=== PATIENT | male | born 1950 | race Caucasian/White ===

== ENCOUNTER → 2017-05-28 13:53 | Outpatient (CLI) | payer MEDICARE, OTHER, SELFPAY ==
[2017-05-28 16:50] LABS: Anion Gap 7 (5-15); BUN 19 mg/dL (7-18); BUN/Creat Ratio 21.9 RATIO (10-20); Calcium,Total 9.1 mg/dL (8.5-10.1); Chloride 104 mmol/L (98-107); Creatinine, Serum 0.87 mg/dL (0.70-1.30); EST Glomerular Filtration Rate 94 mL/min (>60); Est Glom Filt Rate - Afr Amer 113 mL/min (>60); Glucose 80 mg/dL (74-106); Potassium 4.5 mmol/L (3.5-5.1); Sodium Level 139 mmol/L (136-145)
== END ==
PROVIDERS: Family Provider Family Medicine; PCP Family Medicine; Visit Provider Family Medicine
DX: I10 Essential (primary) hypertension (principal)
CPT/HCPCS: 36415; 80048

== ENCOUNTER 2017-07-06 07:41 | Day surgery (SDC) | payer MEDICARE, OTHER, SELFPAY ==
[2017-07-06] VITALS (11 sets, daily range): BP systolic 74–123; BP diastolic 49–86; PULSE 51–76; RESP 16; TEMP 36.1–36.7; O2SAT 95–100; BMI 24.5
--- NOTE | 2017-07-06 | IMM_PTH ---
PATIENT: MICHAEL JOHNSON LOC: EN U#:[id number] AGE/SX: 66/M ROOM: RE07/06/[address]: Dr. Dong Bowen MD : 1950 BED: DIS: 07/06/2017 SPEC #: [id number] RECD: 07/09/17 12:31 STATUS: ROSEMARIE BAHMAN #: [id number] LUIS ANTONIO: 07/06/17 00:[address]: Dong Bowen DEPT: IMMUNOHISTOCHEMISTRY RECD BY: Pearl Tristan ENTERED: 07/09/17 12:32 SP TYPE: IMMUNO OTHR DR: Dr. Rolf Saldivar MD Tissues: C - Stomach, NOS Procedures: H Pylori (initial) PHYSICIAN & INSTITUTION [place] [address] SPECIMEN INFORMATION: Tissue Source: C ? Antral biopsy Clinical Info: Epigastric abdominal pain Specimen Number: [id number] CPT code: 18573 METHODOLOGY: Deparaffinized sections of prefer/formalin-fixed tissue or PAP/DQ stained slides are incubated with monoclonal/polyclonal antibodies/oligonucleotide probes. Localization is made via biotin free immunoperoxidase method. Appropriate controls are performed and reacted as expected. Results on target cell population are indicated in the following table: RESULTS: ANTIBODY / CLONE RESULT Block C H Pylori (polyclonal) negative These tests were developed and their performance characteristics determined by [facility]. They may not have been cleared or approved by the U.S. Food and Drug Administration. The FDA has determined that such clearance or approval is not necessary. INTERPRETATION: C. Antral biopsy: Negative for Helicobacter pylori organisms. SJ:tosin 07/10/17
--- NOTE | 2017-07-06 09:05 | COLBX_PTH ---
PATIENT: MICHAEL JOHNSON LOC: EN U#:[id number] AGE/SX: 66/M ROOM: RE07/06/[address]: Dr. Dong Bowen MD : 1950 BED: DIS: 07/06/2017 SPEC #: [id number] RECD: 07/06/17 13:16 STATUS: ROSEMARIE BAHMAN #: [id number] LUIS ANTONIO: 07/06/17 09:[address]: Dong Bowen DEPT: SURGICAL PATHOLOGY RECD BY: Garth Lu ENTERED: 07/06/17 14:10 SP TYPE: COLON BX OTHR DR: Dr. Rolf Saldivar MD Tissues: A - Colon, NOS B - Duodenum, NOS C - Gastric mucous membrane D - Gastric mucous membrane Procedures: Special Stain Group II Surgery Specimen Level IV Alcian Blue/PAS (control) HEADER OPERATION: Colonoscopy with biopsy and EGD with biopsy PRE-OP DIAGNOSIS: Epigastric abdominal pain TISSUE SUBMITTED: A. Random colon biopsies, B. Duodenal biopsy, C. Antral biopsy for H. Pylori and path, D. GE junction biopsy MICROSCOPIC DIAGNOSIS A. Colon, random biopsy: Fragments of colonic mucosa, no pathologic diagnosis. B. Duodenum, biopsy: Fragment of duodenal mucosa with focal mild flattening of villi. See comment. C. Antral biopsy: Mild gastritis. D. 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 Negative for dysplasia. Focal mild chronic inflammation. See comment. SJ:tosin 07/09/17 COMMENT B. Increased number of intraepithelial lymphocytes consistent with celiac disease are not seen. C. The results of immunohistochemistry for Helicobacter pylori will be reported separately ([id number]). D. Alcian blue/PAS stain with matched control is used in the evaluation of the specimen. MICROSCOPIC DESCRIPTION Slides are reviewed. C. The specimen shows fragments of gastric mucosa with chronic inflammatory cell infiltrates in the lamina propria consisting of lymphocytes and plasma cells, consistent with mild chronic gastritis. GROSS DESCRIPTION A - Received in fixative is one container labeled with the patient's name and designated random colon biopsies. The specimen consists of multiple irregular fragments of light lopez soft tissue that in aggregate measure 1.5 x 0.5 x 0.1 cm. The specimen is totally submitted in one cassette. B - Received in fixative is one container labeled with the patient's name and designated duodenal biopsy. The specimen consists of one irregular fragment of light lopez soft tissue that measures 0.3 x 0.2 x 0.1 cm. The specimen is totally submitted in one cassette. C - Received in fixative is one container labeled with the patient's name and designated antral biopsy for H. pylori and path. The specimen consists of two irregular fragments of light lopez soft tissue that in aggregate measure 0.3 x 0.3 x 0.1 cm. The specimen is totally submitted in one cassette. D - Received in fixative is one container labeled with the patient's name and designated GE junction. The specimen consists of multiple irregular fragments of light lopez soft tissue that in aggregate measure 1.5 x 0.5 x 0.1 cm. The specimen is totally submitted in one cassette. / DERRICK:tosin 07/06/17 TC:3 CPT: 63408 x4, 80077
--- NOTE | 2017-07-06 09:52 | PCM.OPRPT ---
Problem List (1) Change in bowel habit Status: Acute Report of Operation Date of Procedure: 07/06/17 Pre-Operative Diagnosis: Epigastric fullness. Change of bowel habits. Family history with a father who had esophageal obstruction of unknown etiology. Post-Operative Diagnosis: Moderate hiatal hernia. Distal esophagitis suspicious for James's. Minimal duodenitis. Tortuous colon. Minimal diverticulosis. unremarkable mucosa. Fair bowel prep Surgery/Procedure Performed:: Esophagogastroduodenoscopy with duodenal and antral and distal esophageal biopsies. Colonoscopy with random colonic biopsies Description of Surgical Findings:: Timeout and informed consent was obtained. 66-year-old gentleman was taken to the endoscopy suite. His oropharynx anesthetized with Topex. He was placed in the left lateral decubitus position. Throughout both the upper and lower endoscopy he received a total of 125 mg of Demerol and 5 mg of Versed is intravenous sedation. Under direct physician G of gastroscope was inserted into the esophageal inlet. The proximal mid esophagus did not appear to be remarkable. EG junction was at 45 cm. Moderate hiatal hernia noted. Reflux esophagitis noted with changes suspicious for James's. Short segment less than a centimeter. Scope was advanced in the stomach. Stomach did not appear to be remarkable. The scope was advanced through the pylorus. There appeared to be minimal erythema of the duodenum. Scope was advanced in the second portions of the duodenum which was not remarkable. There was free bile reflux from the duodenum onto the stomach. The scope was with about drawn back into the stomach and a duodenal biopsy was obtained. The scope was withdrawn back into the stomach antral biopsy was obtained. The scope was retroflexed. The hiatal hernia noted. The cardia noted. There is no active bleeding or ulcerations. The scope was placed back in antegrade viewing position. Excess fluid and air was aspirated free. The scope was withdrawn to the distal esophagus were multiple distal esophageal biopsies were obtained. Hemostasis was intact. He tolerated procedure well. The scope was removed without additional abnormality Subsequently the patient was kept in the left lateral decubitus position. Digital rectal exam performed. Mild hemorrhoidal changes 2. 2+ smooth prostate. No mass lesions. Self-A-r-T colonoscope inserted the rectum advanced through a tortuous sigmoid colon with an acutely angled splenic flexure. By placing the patient supine and with gentle effort the scope was carefully and gradually advanced through the splenic curvature. Then the scope was readily advanced to the transverse colon into the ascending colon. The cecum ileocecal valve area was nicely achieved. Bowel prep was only fair with liquid stool located throughout the colon coating much of the mucosal surfaces. I felt that I got an above average inspection of the colon though not absolutely perfect secondary to the bowel prep. The scope was carefully withdrawn from the cecum ascending colon transverse colon descending colon. Random colonic biopsies were obtained. There were no mass lesions identified. Minimal sigmoid diverticulosis. The scope was retroflexed within the rectum. Hemorrhoidal changes noted. Excess fluid and air was aspirated free the procedure was completed the patient tolerated it well. Impression Moderate hiatal hernia with reflux esophagitis and findings suspicious for James's. Pathology pending. Would consider follow-up esophagogastroduodenoscopy in 3 years pending path. Otherwise normal-appearing stomach. mild duodenitis with pathology pending. Fair bowel prep. Tortuous sigmoid colon. Minimal sigmoid diverticulosis. Mild internal hemorrhoids. No findings to correlate with acute pathology or explanation for the patient's change of bowel habit. Random colonic biopsies pending. Previous colonoscopy in 2004. Next screening colonoscopy recommended in 10 years. If the patient's symptoms persist then would consider a abdominal pelvic CT scan. Upper endoscopy medications were given at 0920. The procedure was started at 0923. The procedure was completed at 0930. The colonoscopy was started at 0934. The cecum was reached at 0943.43. The procedure was completed 0949.25. Cc: Dr. Yariel Bowen M.D., F.A.C.S. Type of Anesthesia:: IV Sedation
== END 2017-07-06 11:49 | disposition home or self-care (01) ==
LOC: EN 07:42 → AC 07:44
PROVIDERS: Family Provider Family Medicine; PCP Family Medicine; Visit Provider Surgery
PROC: 0DJD8ZZ Inspection of Lower Intestinal Tract, Via Natural or Artificial Opening Endoscopic (ICD-10-PCS; CPT 45378; principal; 2017-07-06 08:55)
DX: K29.70 Gastritis, unspecified, without bleeding (principal); K44.9 Diaphragmatic hernia without obstruction or gangrene; K29.80 Duodenitis without bleeding; K57.30 Diverticulosis of large intestine without perforation or abscess without bleeding; K64.8 Other hemorrhoids; K21.0 Gastro-esophageal reflux disease with esophagitis; I10 Essential (primary) hypertension; M19.90 Unspecified osteoarthritis, unspecified site; Z79.82 Long term (current) use of aspirin; Z79.899 Other long term (current) drug therapy
CPT/HCPCS: 43239; 45380; 88305; 88313; 88342; J7120

== ENCOUNTER → 2017-10-26 07:21 | Outpatient (CLI) | payer MEDICARE, OTHER, SELFPAY ==
--- NOTE | 2017-10-26 07:22 | CT_ITS ---
STUDY: CT ABDOMEN WITH CONTRAST REASON FOR EXAM: Male, 66 years old. Right-sided abdominal pain. RADIATION DOSAGE (If Supplied By Facility): CTDIvol = ( 14.73 ) mGy, DLP = ( 632.54 ) mGycm TECHNIQUE: Transaxial images were obtained post I.V. administration of 100mL ml of Isovue 300 contrast, and with oral contrast. Sagittal and coronal images were reconstructed. Individualized dose optimization techniques were used for this CT. COMPARISON: None. FINDINGS: Minimal linear atelectasis and/or scarring at the lung bases. The visualized portions of the heart are within normal limits. Normal liver. Normal gallbladder and extrahepatic biliary system. Normal spleen. Normal pancreas. Normal bilateral adrenal glands. Normal right kidney. Normal left kidney. There is an accessory left retroaortic renal vein. Normal visualized stomach. Normal small intestine. There are multiple colonic diverticula consistent with diverticulosis. There is thickening of the rectal wall. Clinical correlation is recommended. The patient is status post appendectomy. Normal abdominal aorta. Normal inferior vena cava. Normal retroperitoneum. There is diffuse bladder wall thickening. Cystitis should BE ruled out. Increased markings are also seen in the periprostatic fat. Central prostatic calcification. Normal abdominal wall. Normal osseous structures. CT/Abdomen/Pelvis WITH Contrast IMPRESSION: Diffuse bladder wall thickening. Sigmoid diverticula. Findings in keeping with the rectal wall thickening. Clinical correlation is recommended. Electronically Signed: Michele De Leon MD at 9:57 EDT Tel [phone], Service support ,
[2017-10-26 07:41] LABS: CREATININE FINGERSTICK 0.8 mg/dL (0.70-1.30); EGFR FINGERSTICK > 60.0000 mL/min (>60)
== END ==
PROVIDERS: Family Provider Family Medicine; PCP Family Medicine; Visit Provider Surgery
DX: R10.9 Unspecified abdominal pain (principal)
CPT/HCPCS: 74177; Q9967

== ENCOUNTER → 2018-01-09 16:08 | Outpatient (CLI) | payer MEDICARE, OTHER, SELFPAY ==
[2018-01-09 18:21] LABS: Anion Gap 7 (5-15); BUN 19 mg/dL (7-18); BUN/Creat Ratio 19.8 RATIO (10-20); Chloride 104 mmol/L (98-107); Cholesterol 188 mg/dL (200); Creatinine, Serum 0.96 mg/dL (0.70-1.30); EST Glomerular Filtration Rate 83 mL/min (>60); Est Glom Filt Rate - Afr Amer 101 mL/min (>60); Glucose 96 mg/dL (74-106); High Density Lipoprotein 54 mg/dL; PSA,Total - Annual Screen 0.86 ng/mL (0.00-4.00); Sodium Level 139 mmol/L (136-145); Triglycerides 111 mg/dL; Very Low Density Lipoprotein 22 mg/dL (5-40)
== END ==
PROVIDERS: Family Provider Family Medicine; PCP Family Medicine; Visit Provider Family Medicine
DX: I10 Essential (primary) hypertension (principal); Z12.5 Encounter for screening for malignant neoplasm of prostate; R35.0 Frequency of micturition
CPT/HCPCS: 36415; 80048; 80061; 84153; G0103

== ENCOUNTER → 2018-07-10 15:59 | Outpatient (CLI) | payer MEDICARE, OTHER, SELFPAY ==
--- NOTE | 2018-07-10 16:14 | RAD_ITS ---
STUDY: X-RAY - CERVICAL SPINE REASON FOR EXAM: Male, 67 years old. Neck pain for sometime now getting worse. A lot of stiffness in a lot of pain when looking to the left, to the right and upward. TECHNIQUE: 6 view(s) of the cervical spine were obtained. COMPARISON: None FINDINGS: Normal anterior atlantoaxial articulation. Normal odontoid process. Normal cervical lordosis. Normal vertebral bodies and endplates. Normal disc space heights. Moderately pronounced stenosis of the left C4-C5 intervertebral neural foramen due to osteophytic encroachment arising from the moderately pronounced left C4-C5 degenerative facet arthropathy. No other suspicious foraminal stenosis. The soft tissue structures are unremarkable. RAD/Cerv Spine 4 or 5 Views IMPRESSION: 1. Moderately pronounced stenosis of the left C4-C5 intervertebral neural foramen due to osteophytes arising from the left C4-C5 degenerative facet arthropathy. 2. No acute osseous abnormality of the cervical spine. Electronically Signed: Dinh Briseno MD at 12:57 EDT , Service support ,
[2018-07-10 17:45] LABS: Anion Gap 7 (5-15); BUN 21 mg/dL (7-18); BUN/Creat Ratio 24.3 RATIO (10-20); Calcium,Total 8.9 mg/dL (8.5-10.1); Chloride 104 mmol/L (98-107); Creatinine, Serum 0.86 mg/dL (0.70-1.30); EST Glomerular Filtration Rate 94 mL/min (>60); Est Glom Filt Rate - Afr Amer 114 mL/min (>60); Glucose 100 mg/dL (74-106); PSA,Total- Diagnostic 0.91 ng/mL (0.0-4.0); Sodium Level 137 mmol/L (136-145)
== END ==
PROVIDERS: Family Provider Family Medicine; PCP Family Medicine; Referring Provider Family Medicine; Visit Provider Family Medicine
DX: I10 Essential (primary) hypertension (principal); R35.0 Frequency of micturition; R39.11 Hesitancy of micturition; M54.2 Cervicalgia
CPT/HCPCS: 36415; 72050; 80048; 84153

== ENCOUNTER 2018-09-25 16:00 | Outpatient (RCR) | payer MEDICARE, OTHER, SELFPAY ==
--- NOTE | 2018-08-23 14:28 | HP.PTEVAL_ITS ---
Patient's Visit Information MICHAEL JOHNSON is a 67 year old M referred to Physical Therapy by Rolf Saldivar MD with a diagnosis of neck pain. Date of Evaluation: 08/23/18 Physical Therapist: Joey Prieto, REGGIET, OCS, CSCS - Visit Plan Frequency: 2x /Week Duration: 4-6 Weeks Plan: 2x/week x 4 weeks as needed after 2 week trip to [place]... He is working on posture, c/s ext and scap mobility while he is gone,. Will progress to c/s ROM, UE ROM adn ensure appropriate repeated motion(ext) upon return based on c/s ROM and pain level. Pec stretch. Then progress to postural adn cervical strength as tolerated. - Subjective Findings: Neck pain with looking L and limited motion. Been there a while 4 years adn gettign worse. x ray degenerative. Gave muscle reaxer for a month but it did not help. No exercise for neck. Comfortable at rest adn looking straight ahead for the most art. Feels discomfort in middle and to the left is stiff adn sore more centrally. R turning is not bad. No activitiy limitation except has to turn body to the left in car. Basic ADLs are OK. 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 Feels better if moves it, wore when not doing much. Getting up in morning is very stiff. Using thicker pillow helps especially on side. Sleeps on R side. Smetimes uncomfy trying to get to sleep. - Pain Central neck. Pain Intensity (Out of 10): 0 Pain Intensity Range: 0, 4 Comment: hlding head up is worse, looking up worse. - Objective Baseline discomfort 3/10 centrally. Repeated flexion: Produces central pain. repeated ret:increased ROM, NE pain. Repeated ext: improved ROM each time adn overall, NE pain. Scap mobiity is poor. Forward head elevated scapula posture. Stiffness in UE elevation but full aROM UE. Neck ROM limited to 25 R rotation with pain, 33 L rotation discomfort, SB max limitations, ext 30 degrees adn painful, flexion hurts and 40 degrees. reflexes 2/3 bi and triceps. sensation UE WNL to atif s light touch. Strength UE 4/5 without myotomal abnormalities. - compression test c/s. - nerve tests UE. - Goals Goal 1:: 45 degrees B c/s rotation adn 55 ext adn good scap mobility Goal Time Frame: 4-6 Weeks Goal 2:: Pain in neck abolished at rest adn 1/10 at worst with L rotation Goal Time Frame: 4-6 Weeks Goal 3:: Pt feel 75% better overalla dn I in management of HEP Goal Time Frame: 4-6 Weeks Goal 4:: Sleep without pain Goal Time Frame: 4-6 Weeks - Rehabilitation Potential Physical Therapy Diagnosis: neck pain stenosis vs stiffness. Rehabilitation Potential: Fair - Anticipated Interventions Patient/Client Instruction: Educate patient on: Condition, Plan of Care For the Purpose of:: To decrease pain, To increase ROM, To improve muscle performance and motor function Therapeutic Exercise to Include: Strength training, Postural training, Passive ROM, Active ROM For the Purpose of:: To decrease pain, To increase ROM, To improve muscle performance and motor function, To increase tolerance to activity/condition/position, To improve ability of physical actions for home/community/work/leisure Manual Therapy Techniques to Include: Mobilization, Soft tissue mobilization For the Purpose of:: To increase ROM Thank you for the opportunity to evaluate your patient. For Medicare and Medicare HMO plans, please review the plan of care and approve it. It will need to be FAXED BACK to us at [phone] for Medicare purposes. For Medicare only, by signing this I certify the plan of care. Please let me know if there are questions or concerns regarding this plan of care. Physician Signature: Date:
--- NOTE | 2018-09-25 16:35 | HP.PTREVAL_ITS ---
Rolf Saldivar MD, It has been my pleasure to treat MICHAEL JOHNSON over the last 3 visits for neck pain. Please see the progress note below for an update on the physical therapy plan of care! Subjective: Tried exercises and has questions. Some days feeling better than others. No days worse. Objective/Function: 37 R and 34 L rotation today, 50 extension before stretching. 47 R and 49 L after towel stretch. Plan Plan: f/u 4 weeks to recheck posture, cervical ROM, strength and D/C or progress. Goals Goal 1:: 45 degrees B c/s rotation adn 55 ext adn good scap mobility Goal Time Frame: 4-6 Weeks Goal 2:: Pain in neck abolished at rest adn 1/10 at worst with L rotation Goal Time Frame: 4-6 Weeks Goal 3:: Pt feel 75% better overalla dn I in management of HEP Goal Time Frame: 4-6 Weeks Goal 4:: Sleep without pain Goal Time Frame: 4-6 Weeks Anticipated Interventions Patient/Client Instruction: Educate patient on: Condition, Plan of Care For the Purpose of:: To decrease pain, To increase ROM, To improve muscle performance and motor function Therapeutic Exercise to Include: Strength training, Postural training, Passive ROM, Active ROM For the Purpose of:: To decrease pain, To increase ROM, To improve muscle performance and motor function, To increase tolerance to activity/condition/position, To improve ability of physical actions for h ome/community/work/leisure Manual Therapy Techniques to Include: Mobilization, Soft tissue mobilization For the Purpose of:: To increase ROM Please do not hesitate to contact me at [phone] by phone or if you have questions or concerns regarding this new plan of care! Sincerely, Joey Prieto, DPT, OCS, CSCS
--- NOTE | 2018-12-02 15:25 | HP.PT.NRP ---
HP - Discharge Summary (1) - Patient Information MICHAEL JOHNSON was seen in my office for initial evaluation on 08/23/18. The following Plan of Care was established for this patient: Initial Frequency: 2x /Week Initial Duration: 4-6 Weeks - Anticipated Interventions Patient/Client Instruction: Educate patient on: Condition, Plan of Care For the Purpose of:: To decrease pain, To increase ROM, To improve muscle performance and motor function Therapeutic Exercise to Include: Strength training, Postural training, Passive ROM, Active ROM For the Purpose of:: To decrease pain, To increase ROM, To improve muscle performance and motor function, To increase tolerance to activity/condition/position, To improve ability of physical actions for home/community/work/leisure Manual Therapy Techniques to Include: Mobilization, Soft tissue mobilization For the Purpose of:: To increase ROM This patient was last seen in our office 09/25/18. Pertinent comments regarding their Physical therapy will appear below: Pt seen 3 visits of HEP instruct and was to f/u in Mid October to ensure progress. He did not schedule nor attend that visit. at this point, it has been 8 weeks adn I will disocntinue due to nonattendance. At this point I will be discontinuing this patient from physical therapy. I would be happy to see this patient again in the future if found appropriate by the physician. Thank you! Joey Prieto, DPT, OCS, CSCS
== END 2018-09-25 19:00 | disposition home or self-care (01) ==
LOC: PT 16:00
PROVIDERS: Family Provider Family Medicine; PCP Family Medicine; Referring Provider Family Medicine; Visit Provider Family Medicine
DX: M54.2 Cervicalgia (principal)
CPT/HCPCS: 97110; 97162

== ENCOUNTER → 2019-10-21 | Outpatient (CLI) | payer MEDICARE, OTHER, SELFPAY ==
--- NOTE | 2019-10-21 14:17 | US_ITS ---
STUDY: THYROID ULTRASOUND REASON FOR EXAM: Male, 68 years old. Nodule TECHNIQUE: Ultrasound evaluation of the thyroid was performed with real-time and static phelps-scale imaging. COMPARISON: None. FINDINGS: RIGHT LOBE: The right lobe of the thyroid gland measures 5.0 x 1.9 x 1.7 cm. There is a homogeneous echotexture. There are no demonstrated solid, cystic or complex lesions. LEFT LOBE: The left lobe of the thyroid gland measures 5.2 x 1.6 x 1.6 cm. There is a homogeneous echotexture. There are no demonstrated solid, cystic or complex lesions. ISTHMUS: The isthmus measures 3 mm. The regional lymph nodes are normal. US/Thyroid IMPRESSION: Normal ultrasound examination of the thyroid. Electronically Signed: Kiko Alvarado, at 20:27 EDT Tel , Service support ,
--- NOTE | 2019-10-21 14:17 | US_ITS ---
STUDY: ULTRASOUND - URINARY BLADDER REASON FOR EXAM: Male, 68 years old. BLADDER WALL THICKENING PRE/POST VOID TECHNIQUE: Ultrasound evaluation of the urinary bladder was performed with real-time and static phelps-scale imaging. COMPARISON: None. FINDINGS: There is no right UVJ calculus. There is a visualized right ureteral jet. There is no left UVJ calculus. There is a visualized left ureteral jet. The distended volume of the urinary bladder is 272 ml. The empty volume of the urinary bladder is 41 ml. The bladder wall is within normal limits. The bladder wall measures 3. There is no demonstrated bladder wall mass lesion. There are no demonstrated bladder calculi. There is a subcentimeter cyst in the prostate. US/Post Void Residual Bladder IMPRESSION: Normal ultrasound of the urinary bladder. Postvoid residual of 41 cc. Subcentimeter cyst in the prostate. Electronically Signed: Kiko Alvarado, at 20:17 EDT Tel , Service support ,
== END | disposition home or self-care (01) ==
LOC: US 14:12
PROVIDERS: PCP Family Medicine; Referring Provider Family Medicine; Visit Provider Family Medicine
DX: N32.89 Other specified disorders of bladder (principal); E04.1 Nontoxic single thyroid nodule; N42.83 Cyst of prostate; R39.198 Other difficulties with micturition
CPT/HCPCS: 51798; 76536

== ENCOUNTER → 2019-10-24 | Outpatient (CLI) | payer MEDICARE, OTHER, SELFPAY ==
[2017-07-06 08:12] VITALS: BMI 24.5
[2019-10-24 09:59] LABS: Absolute Lymphocyte Count 1.33 X10^3/uL (0.83-4.51); Absolute Neutrophil Count 2.6 X10^3/uL (2.0-7.7); Basophil# 0.02 X10^3/uL; Basophil% 0.4 % (0-1); Eosinophil# 0.11 X10^3/uL; Eosinophils% 2.4 % (0-5); Hematocrit 47.4 % (40-54); Hemoglobin 15.6 g/dL (13.0-16.5); Lymphocyte # 1.33 X10^3/ul (4.0); Lymphocyte % 28.8 % (19-41); Mean Corp Hgb Conc 32.9 g/dL (32-36); Mean Corpuscular Hgb 30.2 pg (27.0-32.0); Mean Corpuscular Volume 91.9 fL (80-94); Mean Platelet Vol. 9.7 fl (6.2-12.0); Monocyte# 0.55 X10^3/uL; Monocyte% 11.9 % (0-10); NRBC Flagged by Analyzer 0 % (0-5); Neutrophil % 56.3 % (47-70); Platelet Count 225 K/mm3 (150-450); RBC Distribution Width CV 12.1 % (11.6-14.6); RBC Distribution Width SD 40.8 fl (35.1-43.9); Red Blood Count 5.16 M/mm3 (4.6-6.2); White Blood Count 4.6 K/mm3 (4.4-11.0)
[2019-10-24 10:17] LABS: Vitamin B12 586 pg/mL (211-911); Vitamin D,25 Hydroxy 49.9 ng/mL
[2019-10-24 10:27] LABS: ALB/GLOB Ratio 0.9 RATIO (0.9-2.4); AST(SGOT) 23 U/L (15-37); Alanine Aminotransfer ALT/SGPT 29 U/L (16-61); Albumin, Serum 3.9 g/dL (3.2-5.0); Alkaline Phosphatase 71 U/L (45-117); Anion Gap 5 (5-15); BUN 20 mg/dL (7-18); BUN/Creat Ratio 22.1 RATIO (10-20); Calcium,Total 8.9 mg/dL (8.5-10.1); Chloride 101 mmol/L (98-107); Cholesterol 222 mg/dL (200); EST Glomerular Filtration Rate 89 mL/min (>60); Est Glom Filt Rate - Afr Amer 108 mL/min (>60); Globulin 4.3 g/dL (2.2-4.2); Glucose 105 mg/dL (74-106); High Density Lipoprotein 53 mg/dL; PSA,Total - Annual Screen 1.31 ng/mL (0.00-4.00); Potassium 4.1 mmol/L (3.5-5.1); Protein, Total 8.2 g/dL (6.4-8.2); Sodium Level 135 mmol/L (136-145); Triglycerides 90 mg/dL; Very Low Density Lipoprotein 18 mg/dL (5-40)
[2019-10-24 16:29] LABS: Hemoglobin A1c 5.3 % (3.8-5.6)
== END | disposition home or self-care (01) ==
LOC: MTLAB 07:29
PROVIDERS: PCP Family Medicine; Referring Provider Family Medicine; Visit Provider Family Medicine
DX: I10 Essential (primary) hypertension (principal); E55.9 Vitamin D deficiency, unspecified; E04.1 Nontoxic single thyroid nodule; Z12.5 Encounter for screening for malignant neoplasm of prostate; R53.83 Other fatigue
CPT/HCPCS: 36415; 80053; 80061; 82306; 82607; 83036; 84153; 84439; 84443; 85025; G0103

== ENCOUNTER → 2020-05-04 08:42 | Outpatient (CLI) | payer MEDICARE, OTHER, SELFPAY ==
[2017-07-06 08:12] VITALS: BMI 24.5
[2020-05-04 09:06] LABS: Bacteria 0 SEEN /hpf (None Seen); Mucous, Urine 0 SEEN /hpf (<or=2+); Red Blood Cells-Urine 0 SEEN /hpf (0-5); Squamous Epithelial Cells - UA 0 SEEN /hpf (0-5); White Blood Cells 0 SEEN /hpf (0-5)
[2020-05-04 12:27] LABS: ALB/GLOB Ratio 0.9 RATIO (0.9-2.4); AST(SGOT) 20 U/L (15-37); Alanine Aminotransfer ALT/SGPT 25 U/L (16-61); Albumin, Serum 3.7 g/dL (3.2-5.0); Alkaline Phosphatase 65 U/L (45-117); Anion Gap 6 (5-15); BUN 15 mg/dL (7-18); Calcium,Total 8.7 mg/dL (8.5-10.1); Chloride 106 mmol/L (98-107); Cholesterol 201 mg/dL (200); Creatinine, Serum 0.88 mg/dL (0.70-1.30); EST Glomerular Filtration Rate 91 mL/min (>60); Est Glom Filt Rate - Afr Amer 110 mL/min (>60); Globulin 3.9 g/dL (2.2-4.2); Glucose 98 mg/dL (74-106); High Density Lipoprotein 52 mg/dL; Protein, Total 7.6 g/dL (6.4-8.2); Sodium Level 138 mmol/L (136-145); Triglycerides 76 mg/dL; Very Low Density Lipoprotein 15 mg/dL (5-40)
[2020-05-04 12:31] LABS: Color, Urine Yellow (Yellow); Glucose, Dipstick Normal (Normal); Ketone-Dipstick Negative (Negative); Leukocyte Esterase-Dipstick Negative /ul (Negative); Nitrite-Dipstick Negative (Negative); Occult Blood-Urine Negative /ul (Negative); Protein-Dipstick Negative (Negative); Urine Bilirubin Dipstick Negative (Negative); Urine Clarity Clear (Clear); Urine Urobilinogen Normal (Normal)
[2020-05-04 12:36] LABS: Hemoglobin A1c 5.1 % (3.8-5.6)
== END ==
PROVIDERS: PCP Family Medicine; Referring Provider Family Medicine; Visit Provider Family Medicine
DX: E78.5 Hyperlipidemia, unspecified (principal); R53.83 Other fatigue; I10 Essential (primary) hypertension
CPT/HCPCS: 36415; 80053; 80061; 81001; 83036

== ENCOUNTER → 2020-11-09 09:29 | Outpatient (CLI) | payer MEDICARE, OTHER, SELFPAY ==
[2020-06-24 08:41] VITALS: BMI 24.4
[2020-11-09 12:36] LABS: Absolute Neutrophil Count 2.8 X10^3/uL (2.0-7.7); Basophil# 0.02 X10^3/uL; Basophil% 0.4 % (0-1); Eosinophil# 0.11 X10^3/uL; Eosinophils% 2.5 % (0-5); Hematocrit 47.4 % (40-54); Hemoglobin 16.1 g/dL (13.0-16.5); Lymphocyte % 22.4 % (19-41); Mean Corpuscular Hgb 30.4 pg (27.0-32.0); Mean Corpuscular Volume 89.6 fL (80-94); Mean Platelet Vol. 10.1 fl (6.2-12.0); Monocyte# 0.57 X10^3/uL; Monocyte% 12.8 % (0-10); NRBC Flagged by Analyzer 0 % (0-5); Neutrophil # 2.76 X10^3/uL (2.7-7.7); Neutrophil % 61.7 % (47-70); Platelet Count 217 K/mm3 (150-450); RBC Distribution Width CV 12.3 % (11.6-14.6); RBC Distribution Width SD 40.3 fl (35.1-43.9); Red Blood Count 5.29 M/mm3 (4.6-6.2); White Blood Count 4.5 K/mm3 (4.4-11.0)
[2020-11-09 13:12] LABS: ALB/GLOB Ratio 0.9 RATIO (0.9-2.4); AST(SGOT) 25 U/L (15-37); Alanine Aminotransfer ALT/SGPT 27 U/L (16-61); Albumin, Serum 3.8 g/dL (3.2-5.0); Alkaline Phosphatase 67 U/L (45-117); Anion Gap 5 (5-15); BUN 18 mg/dL (7-18); Calcium,Total 8.9 mg/dL (8.5-10.1); Chloride 104 mmol/L (98-107); Cholesterol 206 mg/dL (200); Creatinine, Serum 0.86 mg/dL (0.70-1.30); EST Glomerular Filtration Rate 94 mL/min (>60); Est Glom Filt Rate - Afr Amer 114 mL/min (>60); Globulin 4.2 g/dL (2.2-4.2); Glucose 99 mg/dL (74-106); High Density Lipoprotein 53 mg/dL; Potassium 4.3 mmol/L (3.5-5.1); Sodium Level 137 mmol/L (136-145); Thyroid Stim Hormone (TSH) 1.08 uIU/mL (0.358-3.74); Triglycerides 55 mg/dL; Very Low Density Lipoprotein 11 mg/dL (5-40)
== END ==
PROVIDERS: PCP Family Medicine; Referring Provider Family Medicine; Visit Provider Family Medicine
DX: E78.5 Hyperlipidemia, unspecified (principal); I10 Essential (primary) hypertension
CPT/HCPCS: 36415; 80053; 80061; 84443; 85025

== ENCOUNTER → 2021-08-19 | Outpatient (CLI) | payer MEDICARE, OTHER, SELFPAY ==
[2021-08-19 10:28] LABS: Absolute Lymphocyte Count 1.01 X10^3/uL (0.83-4.51); Absolute Neutrophil Count 3.1 X10^3/uL (2.0-7.7); Basophil# 0.01 X10^3/uL; Basophil% 0.2 % (0-1); Eosinophils% 2.1 % (0-5); Hemoglobin 16.4 g/dL (13.0-16.5); Lymphocyte # 1.01 X10^3/ul (0.83-4.51); Lymphocyte % 21.5 % (19-41); Mean Corp Hgb Conc 34.2 g/dL (32-36); Mean Corpuscular Hgb 30.5 pg (27.0-32.0); Mean Corpuscular Volume 89.2 fL (80-94); Mean Platelet Vol. 9.5 fl (6.2-12.0); Monocyte# 0.44 X10^3/uL; Monocyte% 9.4 % (0-10); NRBC Flagged by Analyzer 0 % (0-5); Neutrophil # 3.13 X10^3/uL (2.7-7.7); Neutrophil % 66.6 % (47-70); Platelet Count 207 K/mm3 (150-450); RBC Distribution Width CV 12.2 % (11.6-14.6); RBC Distribution Width SD 40.3 fl (35.1-43.9); Red Blood Count 5.38 M/mm3 (4.6-6.2); White Blood Count 4.7 K/mm3 (4.4-11.0)
[2021-08-19 10:55] LABS: Vitamin D,25 Hydroxy 38.1 ng/mL
[2021-08-19 10:57] LABS: ALB/GLOB Ratio 0.8 RATIO (0.9-2.4); AST(SGOT) 23 U/L (15-37); Alanine Aminotransfer ALT/SGPT 26 U/L (16-61); Albumin, Serum 3.6 g/dL (3.2-5.0); Alkaline Phosphatase 68 U/L (45-117); Anion Gap 5 (5-15); BUN 15 mg/dL (7-18); BUN/Creat Ratio 17.8 RATIO (10-20); Chloride 107 mmol/L (98-107); Cholesterol 208 mg/dL (200); Creatinine, Serum 0.84 mg/dL (0.70-1.30); EST Glomerular Filtration Rate 96 mL/min (>60); Est Glom Filt Rate - Afr Amer 116 mL/min (>60); Globulin 4.4 g/dL (2.2-4.2); Glucose 104 mg/dL (74-106); High Density Lipoprotein 53 mg/dL; PSA,Total - Annual Screen 1.41 ng/mL (0.00-4.00); Potassium 4.3 mmol/L (3.5-5.1); Sodium Level 138 mmol/L (136-145); Triglycerides 51 mg/dL; Very Low Density Lipoprotein 10 mg/dL (5-40)
[2021-08-19 15:56] LABS: Hemoglobin A1c 5.1 % (3.8-5.6)
== END | disposition home or self-care (01) ==
LOC: MFPLAB 09:34
PROVIDERS: PCP Family Medicine; Referring Provider Family Medicine; Visit Provider Family Medicine
DX: E78.5 Hyperlipidemia, unspecified (principal); E55.9 Vitamin D deficiency, unspecified; R73.09 Other abnormal glucose; Z12.5 Encounter for screening for malignant neoplasm of prostate
CPT/HCPCS: 36415; 80053; 80061; 82306; 83036; 84153; 85025; G0103

== ENCOUNTER → 2021-09-02 | Outpatient (CLI) | payer MEDICARE, OTHER, SELFPAY ==
--- NOTE | 2021-09-02 14:35 | RAD_ITS ---
STUDY: XR Knee Complete 4 Views or More 09/02/2021 6:59 PM REASON FOR EXAM: Male, 70 years old. PAIN TECHNIQUE: XR Knee Complete 4 Views or More RIGHT COMPARISON: None FINDINGS: Normal visualized distal femur. Normal visualized proximal tibia and fibula. Normal proximal tibiofibular articulation. There is mild degenerative arthrosis of the medial femorotibial compartment. Normal lateral femorotibial compartment. There is mild degenerative arthrosis of the patellofemoral articulation. There is soft tissue swelling along the tibial tubercle. RAD/Knee 4 or More Views IMPRESSION: Degenerative arthrosis. There is soft tissue swelling along the tibial tubercle. Electronically Signed: Osmany Lassiter MD at 19:01 EDT ,
--- NOTE | 2021-09-02 14:35 | RAD_ITS ---
INDICATION: PAIN EXAMINATION/TECHNIQUE: X-RAY - LEFT XR Knee Complete 4 Views or More 4 VIEWS COMPARISON: None. FINDINGS: SOFT TISSUES: Mild prepatellar soft tissue edema. No radiopaque foreign body. BONES/JOINTS: No acute fracture or subluxation.. Normal alignment. Mild tricompartmental degenerative changes.. No sclerotic or destructive changes observed. RAD/Knee 4 or More Views IMPRESSION: Mild tricompartmental degenerative changes. Electronically Signed: Ranjith Hawk MD at 21:54 EDT ,
== END | disposition home or self-care (01) ==
LOC: MTRAD 14:32
PROVIDERS: PCP Family Medicine; Referring Provider Family Medicine; Visit Provider Family Medicine
DX: M25.569 Pain in unspecified knee (principal)
CPT/HCPCS: 73564

== ENCOUNTER → 2022-02-13 | Outpatient (CLI) | payer MEDICARE, OTHER, SELFPAY ==
[2022-02-13 12:19] LABS: ALB/GLOB Ratio 0.9 RATIO (0.9-2.4); AST(SGOT) 25 U/L (15-37); Alanine Aminotransfer ALT/SGPT 30 U/L (16-61); Albumin, Serum 3.7 g/dL (3.2-5.0); Alkaline Phosphatase 71 U/L (45-117); Anion Gap 5 (5-15); BUN 16 mg/dL (7-18); BUN/Creat Ratio 19.2 RATIO (10-20); Calcium,Total 9.4 mg/dL (8.5-10.1); Chloride 103 mmol/L (98-107); Cholesterol 209 mg/dL (200); Creatinine, Serum 0.83 mg/dL (0.70-1.30); EST Glomerular Filtration Rate 97 mL/min (>60); Est Glom Filt Rate - Afr Amer 117 mL/min (>60); Globulin 4.2 g/dL (2.2-4.2); Glucose 110 mg/dL (74-106); High Density Lipoprotein 55 mg/dL; Potassium 4.5 mmol/L (3.5-5.1); Protein, Total 7.9 g/dL (6.4-8.2); Sodium Level 137 mmol/L (136-145); Triglycerides 65 mg/dL; Very Low Density Lipoprotein 13 mg/dL (5-40)
[2022-02-13 12:23] LABS: Vitamin D,25 Hydroxy 46.6 ng/mL
== END | disposition home or self-care (01) ==
LOC: MFPLAB 10:28
PROVIDERS: PCP Family Medicine; Visit Provider Nurse Practitioner Family
DX: E78.5 Hyperlipidemia, unspecified (principal); E55.9 Vitamin D deficiency, unspecified
CPT/HCPCS: 36415; 80053; 80061; 82306

== ENCOUNTER 2022-03-28 07:52 | Day surgery (SDC) | payer MEDICARE, OTHER, SELFPAY ==
[2022-03-28 08:32] VITALS: BP 129/82; PULSE 58; RESP 16; TEMP 36.2; O2SAT 99; BMI 24.8
--- NOTE | 2022-03-28 08:39 | HP.PCM_ITS ---
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 Is patient in pain?: No Allergies No Known Allergies Allergy (Unverified 03/01/22 14:55) Medications latanoprost 0.005 % eye drops 1 drp ophthalmic (eye) QDAY 06/07/17 [History Confirmed 03/01/22] timolol 0.5 % eye drops 1 drp ophthalmic (eye) BID 06/07/17 [History Confirmed 03/01/22] aspirin 81 mg tablet,delayed release (Adult Low Dose Aspirin) 81 mg PO DAILY 06/24/20 [History Confirmed 03/01/22] dorzolamide 22.3 mg-timolol 6.8 mg/mL eye drops 1 drp ophthalmic (eye) BID 06/24/20 [History Confirmed 03/01/22] omeprazole 20 mg capsule,delayed release 20 mg PO DAILY 06/24/20 [History Confirmed 03/01/22] PFSH Medical History? Abdominal pain Arthritis Change in bowel habit Constipation GERD (gastroesophageal reflux disease) History of James's esophagus Hypertension Surgical History? History of detached retina repair History of esophagogastroduodenoscopy (EGD) Hx of appendectomy Hx of bilateral inguinal hernia repair Hx of colonoscopy Family History? Mother Breast cancer Heart disease CVA (cerebral vascular accident) Thyroid disorder ArthritisGrandmother DiabetesFather Esophagus cancer Cancer ?? ? skin Hypertension Social History? Smoking Status:? Never smoker second hand exposure:? No alcohol intake:? never substance use type:? does not use caffeine:? Yes what type of physical activity do you participate in:? walking frequency:? 5-6 times per week HPI HPI HPI: [id number] gentleman discuss follow-up James's esophagus.? I have seen him most recently on June 24, 2020.? We had discussion regarding the surgical treatment of reflux as noted below.? At that time he elected not to pursue. The patient try to avoid COVID and so did not interact with physicians last year.? He did not have COVID and is feeling good about that.? He enjoys an active retired lifestyle.? He denies chest pain or shortness of breath.? He has very few reflux symptoms.? He sleeps on 2 pillows at night.? When he lies down he will feel a little bit of a tickle sometimes will get up drink some water and that will be yet.? The only medication he is on his 20 mg of omeprazole in the morning. My notes of June 24, 2020 reflect the following HPI: MICHAEL JOHNSON, is a 69 M who presents to the office today for surgical consultation regarding ongoing problems with gastroesophageal reflux disease and some epigastric discomfort and ongoing issues with swallowing.? He has a known history of James's esophagus as noted below.? He was off his omeprazole for a couple months.? He has now resumed it and is feeling better.? He is now retired from work but he remains very physically active.? He notes that when he lies supine particularly at night he will have a bitter sensation in his oropharynx. Report of Operation Date of Procedure: 07/06/17 Pre-Operative Diagnosis: Epigastric fullness.? Change of bowel habits.? Family history with a father who had esophageal obstruction of unknown etiology. Post-Operative Diagnosis: Moderate hiatal hernia.? Distal esophagitis suspicious for James's.? Minimal duodenitis.? Tortuous colon.? Minimal diverticulosis. unremarkable mucosa.? Fair bowel prep Surgery/Procedure Performed:: Esophagogastroduodenoscopy with duodenal and antral and distal esophageal biopsies.? Colonoscopy with random colonic biopsies MICROSCOPIC DIAGNOSIS A.? Colon, random biopsy:Fragments of colonic mucosa, no pathologic diagnosis. B.? Duodenum, biopsy:Fragment of duodenal mucosa with focal mild flattening of villi.? See comment. C.? Antral biopsy:Mild gastritis. D.? GE junction, biopsy:Fragments of gastroesophageal mucosa with focal minimal intestinal metaplasia (goblet cell metaplasia) consistent with James?s esophagus.Negative for dysplasia.Focal mild chronic inflammation.? H. pylori negative We had a discussion regarding long-term PPI use. I am recommending to him consideration for a esophagogastroduodenoscopy with anticipated biopsy and additional recommendations for pH probe placement. I have discussed the technique, benefit, risk, alternatives. I have additionally discussed with the patient that he would need to have further future esophageal manometry. I briefly discussed with him technique for laparoscopy and repair of his hiatal hernia with a surgical reflux procedure. This may very well allow him to be able to cease his PPI. The patient is enjoying a very high quality of life. I believe that it is a reasonable option to offer him at this time. He would like to consider proceeding with the pH probe placement. Then pending those results he will make further consideration as to whether he would want to proceed with manometry. ROS General General: No weight change, appetite, fatigue, colon cancer, breast cancer or weakness HEENT HEENT: No difficulty swallowing, eye injury, eye surgery, swollen glands or hoarseness Endo Endocrine: No thyroid disease, diabetes mellitus, thyroid cancer, Hair loss, heat intolerance or cold intolerance Skin Skin: No rash or changing moles Musc Musculoskeletal: No back problems, arthritis, rheumatoid arthritis, gout or joint pain Cardio Cardiovascular: No murmur, pacemaker, heart disease, atrial fibrillation, high blood pressure, heart attack, heart stent, palpitations, shortness of breat with exertion or chest pain Psych Psychiatric: No depression, anxiety or hearing voices Resp Respiratory: No shortness of breath, No sleep apnea, No cough, No COPD, No asthma, No emphysema and No wheezing Gastro Gastrointestinal: No abdominal pain, No nausea or vomiting, No diarrhea, No constipation, No blood in stool, Yes acid reflux, No hemorrhoids, No ulcers, No gallbladder problem and No black,tarry stools Damian Hematologic: No blood thinners, No blood disorders, No bleeding, No anemia and No blood clots Neuro Neurologic: No system reviewed and no additional complaints, except as documented, No as per HPI, No abnormal gait, No abnormal hearing, No abnormal movements, No abnormal speech, No behavioral changes, No burning sensations, No confusion, No convulsions, No disequilibrium, No dizziness, No localized weakness, No frequent falls, No headache(s), No lack of coordination, No loss of vision, No memory loss, No numbness, No other visual disturbances, No radicular pain, No restless legs, No sensory deficit, No syncope, No tingling, No tremor(s), No weakness and No other Exam Const General: cooperative, comfortable and no acute distress [facility] Head: normal to inspection Eyes General: appearance normal, both eyes and all related structures Neck Neck: normal visual inspection Chest Chest palpation & inspection: normal inspection of the chest Resp Effort & Inspection: normal respiratory effort Auscultation: clear to auscultation bilaterally Cardio Rate: regular rate Rhythm: regular rhythm GI Inspection: normal to inspection Palpation: soft and no hepatosplenomegaly Musc Cervical Spine: normal cervical lordosis Neuro General: patient alert, patient awake and patient oriented x3 Extrem General: no calf tenderness Psych Appearance: grossly normal Assessment and Plan Assessment and Plan (1) History of James's esophagus: ?Status:?Acute ?Plan: I recommended the patient a esophagogastroduodenoscopy with very careful inspection of the EG junction and biopsy as appropriate.? He is aware of the technique, benefit, risks, alternatives.? From his description it sounds like he has reflux esophagitis with James's but inability to sense it. He fortunately does not use tobacco or alcohol.? His BMI is only 24.5. This point I do not need pH probe analysis.? Pending the results of his upper endoscopy though if the James's appears to have progressed then might consider further investigation with esophageal manometry with a stronger advisement toward a surgical reflux procedure. He has had an opportunity to ask and have questions answered.? We will schedule procedure at his discretion.? Because of a tick bite he has been placed on doxycycline.? I have asked him to wait 2 weeks subsequent to the completion of his treatment so we do not get a misinterpretation about the amount of inflammation that might be present in his stomach or esophagus that could be related to the doxycycline treatment Copy: Dr Julio Bowen M.D., F.A.C.S. I have examined the patient and the H&P has been reviewed. There are no clinical changes since date of exam. Dong Bowen M.D., F.A.C.S.
[2022-03-28] MEDS: Lactated Ringers 1,000 ML 15 ML IV (08:40)
--- NOTE | 2022-03-28 09:00 | EGD_PTH ---
PATIENT: MICHAEL JOHNSON LOC: EN U#:[id number] AGE/SX: 71/M ROOM: RE03/28/[address]: Dr. Dogn Bowen MD : 1950 BED: DIS: 03/28/2022 SPEC #: [id number] RECD: 03/28/22 10:27 STATUS: ROSEMARIE BAHMAN #: [id number] LUIS ANTONIO: 03/28/22 09:[address]: Dong Bowen DEPT: SURGICAL PATHOLOGY RECD BY: Giana Swan ENTERED: 03/28/22 11:07 SP TYPE: EGD BIOPSY OT DR: Dr. Julio Sanchez MD Tissues: A - Gastric mucous membrane B - Esophagus, NOS C - Esophagus, NOS Procedures: Special Stain Group II Surgery Specimen Level IV Alcian Blue/PAS (control) HEADER OPERATION: EGD ([facility] [place]), biopsy PRE-OP DIAGNOSIS: History of James?s esophagus TISSUE SUBMITTED: A ? Antrum biopsy for histo and H. pylori, B ? Greater curvature polyp biopsy, C ? Distal esophagus biopsy MICROSCOPIC DIAGNOSIS A. Antrum, biopsy: Mild gastritis. See microscopic description and comment. B. Greater curvature polyp, biopsy: Consistent with fundic gland polyp. C. Distal esophagus, biopsy: Fragments of gastroesophageal mucosa with chronic inflammation. Intestinal metaplasia (goblet cell metaplasia) not identified. See comment. SJ:tosin 03/29/2022 COMMENT A. The results of immunohistochemistry for Helicobacter pylori will be reported separately ([id number]). C. Alcian blue/PAS stain with matched control is used in the evaluation of the specimen. MICROSCOPIC DESCRIPTION Slides are reviewed. A. The specimen shows fragments of gastric mucosa with chronic inflammatory cell infiltrates in the lamina propria consisting of lymphocytes and plasma cells, consistent with mild chronic gastritis. Focal mucosal congestion and hemorrhage are also noted. GROSS DESCRIPTION A - Received in fixative is one container labeled with the patient's name and designated antrum biopsy. The specimen consists of one irregular fragment of light lopez soft tissue that measures 0.4 x 0.3 x 0.1 cm. The specimen is totally submitted in one cassette. B - Received in fixative is one container labeled with the patient's name and designated greater curvature polyp biopsy. The specimen consists of one irregular fragment of light lopez soft tissue that measures 0.4 x 0.4 x 0.1 cm. The specimen is totally submitted in one cassette. C - Received in fixative is one container labeled with the patient's name and designated distal esophagus biopsy. The specimen consists of multiple irregular fragments of light lopez soft tissue that in aggregate measure 1.5 x 0.8 x 0.1 cm. The specimen is totally submitted in one cassette. / SJ:rg 03/28/2022 TC:3 CPT: 15561 x3, 60912
--- NOTE | 2022-03-28 09:00 | IMM_PTH ---
PATIENT: MICHAEL JOHNSON LOC: EN U#:[id number] AGE/SX: 71/M ROOM: RE03/28/[address]: Dr. Dong Bowen MD : 1950 BED: DIS: 03/28/2022 SPEC #: [id number] RECD: 03/28/22 11:42 STATUS: ROSEMARIE REQ #: [id number] LUIS ANTONIO: 03/28/22 09:[address]: Dong Bowen DEPT: IMMUNOHISTOCHEMISTRY RECD BY: Pearl Tristan ENTERED: 03/28/22 11:42 SP TYPE: IMMUNO OTHR DR: Dr. Julio Sanchez MD Tissues: A - Stomach, NOS Procedures: H Pylori (initial) PHYSICIAN [facility] INSTITUTION [address] [address] SPECIMEN INFORMATION: Tissue Source: A ? Antrum biopsy Clinical Info: History of James?s esophagus Specimen Number: [id number] CPT code: 06009 METHODOLOGY: Deparaffinized sections of prefer/formalin-fixed tissue or PAP/DQ stained slides are incubated with monoclonal/polyclonal antibodies/oligonucleotide probes. Localization is made via biotin free immunoperoxidase method. Appropriate controls are performed and reacted as expected. Results on target cell population are indicated in the following table: RESULTS: ANTIBODY / CLONE RESULT Block A H Pylori (polyclonal) negative These tests were developed and their performance characteristics determined by [facility]. They may not have been cleared or approved by the U.S. Food and Drug Administration. The FDA has determined that such clearance or approval is not necessary. The above immunohistochemical/dualISH markers are ordered and reviewed by the Pathologist. INTERPRETATION: A. Antrum, biopsy: Negative for Helicobacter pylori organisms. SJ:tosin 03/29/2022
[2022-03-28 09:30] VITALS: BP 105/75; BP 129/82; PULSE 78; RESP 16; TEMP 37.3; O2SAT 96
--- NOTE | 2022-03-28 09:31 | OP.EGD_ITS ---
Patient Name: Husam Noriega Procedure Date: 03/28/2022 9:07 AM Date of : 1950 Age: 71 Procedure: Upper GI endoscopy Indications: Follow-up of James's esophagus Providers: Dong Bowen MD Referring MD: Julio Snachez Medicines: See the Anesthesia note for documentation of the administered medications Complications: No immediate complications. Procedure: Pre-Anesthesia Assessment: - Prior to the procedure, a History and Physical was performed, and patient medications and allergies were reviewed. The patient's tolerance of previous anesthesia was also reviewed. The risks and benefits of the procedure and the sedation options and risks were discussed with the patient. All questions were answered, and informed consent was obtained. Prior Anticoagulants: The patient has taken no previous anticoagulant or antiplatelet agents. ASA Grade Assessment: II - A patient with mild systemic disease. After reviewing the risks and benefits, the patient was deemed in satisfactory condition to undergo the procedure. After obtaining informed consent, the endoscope was passed under direct vision. Throughout the procedure, the patient's blood pressure, pulse, and oxygen saturations were monitored continuously. The gastroscope was introduced through the mouth, and advanced to the second part of duodenum. The upper GI endoscopy was accomplished without difficulty. The patient tolerated the procedure well. Scope In: 9:15:56 AM Scope Out: 9:25:10 AM Total Procedure Duration Time 0 hours 9 minutes 14 seconds Findings: There were esophageal mucosal changes consistent with short-segment James's esophagus present in the distal esophagus. The maximum longitudinal extent of these mucosal changes was 2 cm in length. Mucosa was biopsied with a cold forceps for histology in 4 quadrants at the gastroesophageal junction. The Z-line was irregular and was found 47 cm from the incisors. A small hiatal hernia was present. A few sessile polyps with no bleeding and no stigmata of recent bleeding were found on the greater curvature of the stomach. The polyp was removed with a cold biopsy forceps. Resection and retrieval were complete. Diffuse mildly erythematous mucosa without bleeding was found in the gastric antrum. Biopsies were taken with a cold forceps for histology. The examined duodenum was normal. Impression: - Esophageal mucosal changes consistent with short-segment James's esophagus. Biopsied. - Z-line irregular, 47 cm from the incisors. - Small hiatal hernia. - A few gastric polyps. Resected and retrieved. - Erythematous mucosa in the antrum. Biopsied. - Normal examined duodenum. Recommendation: - Discharge patient to home. - Resume previous diet. - Continue present medications. - Telephone my office for pathology results in 1 week. You may contact my office and schedule follow-up appointment if you want to further discuss surgical treatment options for reflux disease. Procedure Code(s): --- Professional --- 14189, Esophagogastroduodenoscopy, flexible, transoral; with biopsy, single or multiple Diagnosis Code(s): --- Professional --- K22.70, James's esophagus without dysplasia K22.8, Other specified diseases of esophagus K44.9, Diaphragmatic hernia without obstruction or gangrene K31.7, Polyp of stomach and duodenum K31.89, Other diseases of stomach and duodenum CPT copyright 2017 [employer]. All rights reserved. The codes documented in this report are preliminary and upon ballaster review may be revised to meet current compliance requirements. Dong Bowen MD 03/28/2022 9:30:52 AM This report has been signed electronically. Number of Addenda: 0 Note Initiated On: 03/28/2022 9:07 AM
--- NOTE | 2022-03-28 09:32 | OP.CCLET_ITS ---
03/28/2022 Julio Sanchez [address] [place] [address] Re : Upper GI endoscopy procedure for Husam Noriega Dear Dr. Sanchez This procedure was performed on Monday, March 28, 2022. My impressions and recommendations are as follows: Impressions : - Esophageal mucosal changes consistent with short-segment James's esophagus. Biopsied. - Z-line irregular, 47 cm from the incisors. - Small hiatal hernia. - A few gastric polyps. Resected and retrieved. - Erythematous mucosa in the antrum. Biopsied. - Normal examined duodenum. Recommendations : - Discharge patient to home. - Resume previous diet. - Continue present medications. - Telephone my office for pathology results in 1 week. You may contact my office and schedule follow-up appointment if you want to further discuss surgical treatment options for reflux disease. My findings are described in the full procedure note, which is enclosed. If I can be of further assistance, please feel free to contact me at Doctor phone number(s): Work: . Sincerely, Dong Bowen MD 03/28/2022 9:30:52 AM This report has been signed electronically.
[2022-03-28 09:35] VITALS: BP 118/84; BP 129/82; PULSE 84; RESP 16; O2SAT 97
[2022-03-28 09:40] VITALS: BP 120/91; BP 129/82; PULSE 80; RESP 16; O2SAT 96
[2022-03-28 09:44] VITALS: BP 125/86; BP 129/82; PULSE 82; RESP 80; TEMP 36.9; O2SAT 96
[2022-03-28 10:18] VITALS: BP 129/82
== END 2022-03-28 10:24 | disposition home or self-care (01) ==
LOC: EN 07:53 → AC 07:54
PROVIDERS: PCP Family Medicine; Referring Provider Family Medicine; Visit Provider Surgery
PROC: 0DJ08ZZ Inspection of Upper Intestinal Tract, Via Natural or Artificial Opening Endoscopic (ICD-10-PCS; CPT 43235; principal; 2022-03-28 08:55)
DX: K29.50 Unspecified chronic gastritis without bleeding (principal); K22.70 Barrett's esophagus without dysplasia; K44.9 Diaphragmatic hernia without obstruction or gangrene; K31.7 Polyp of stomach and duodenum; K21.00 Gastro-esophageal reflux disease with esophagitis, without bleeding; K31.89 Other diseases of stomach and duodenum; Z79.82 Long term (current) use of aspirin; Z79.899 Other long term (current) drug therapy
CPT/HCPCS: 43239; 88305; 88313; 88342; J7120; J2405

== ENCOUNTER → 2022-09-05 | Outpatient (CLI) | payer MEDICARE, OTHER, SELFPAY ==
[2022-09-05 10:14] LABS: Absolute Lymphocyte Count 1.21 X10^3/uL (0.83-4.51); Absolute Neutrophil Count 2.3 X10^3/uL (2.0-7.7); Basophil# 0.02 X10^3/uL; Basophil% 0.5 % (0-1); Eosinophils% 2.4 % (0-5); Hematocrit 47.2 % (40-54); Hemoglobin 15.6 g/dL (13.0-16.5); Lymphocyte # 1.21 X10^3/ul (0.83-4.51); Lymphocyte % 28.9 % (19-41); Mean Corp Hgb Conc 33.1 g/dL (32-36); Mean Corpuscular Hgb 30.4 pg (27.0-32.0); Mean Corpuscular Volume 91.8 fL (80-94); Mean Platelet Vol. 9.9 fl (6.2-12.0); Monocyte# 0.53 X10^3/uL; Monocyte% 12.7 % (0-10); NRBC Flagged by Analyzer 0 % (0-5); Neutrophil # 2.31 X10^3/uL (2.7-7.7); Neutrophil % 55.3 % (47-70); Platelet Count 202 K/mm3 (150-450); RBC Distribution Width CV 12.2 % (11.6-14.6); RBC Distribution Width SD 41.9 fl (35.1-43.9); Red Blood Count 5.14 M/mm3 (4.6-6.2); White Blood Count 4.2 K/mm3 (4.4-11.0)
[2022-09-05 10:49] LABS: Vitamin D,25 Hydroxy 53.4 ng/mL
[2022-09-05 10:54] LABS: ALB/GLOB Ratio 0.9 RATIO (0.9-2.4); AST(SGOT) 25 U/L (15-37); Alanine Aminotransfer ALT/SGPT 25 U/L (16-61); Albumin, Serum 3.7 g/dL (3.2-5.0); Alkaline Phosphatase 67 U/L (45-117); Anion Gap 4 (5-15); BUN 22 mg/dL (7-18); BUN/Creat Ratio 26.3 RATIO (10-20); Chloride 108 mmol/L (98-107); Cholesterol 191 mg/dL (200); Creatinine, Serum 0.84 mg/dL (0.70-1.30); EST Glomerular Filtration Rate 96 mL/min (>60); Est Glom Filt Rate - Afr Amer 117 mL/min (>60); Globulin 3.9 g/dL (2.2-4.2); Glucose 113 mg/dL (74-106); High Density Lipoprotein 51 mg/dL; Protein, Total 7.6 g/dL (6.4-8.2); Sodium Level 139 mmol/L (136-145); Triglycerides 70 mg/dL; Very Low Density Lipoprotein 14 mg/dL (5-40)
[2022-09-06 10:24] LABS: Hemoglobin A1c 5.2 % (3.8-5.6)
== END | disposition home or self-care (01) ==
LOC: MFPLAB 08:56
PROVIDERS: PCP Family Medicine; Visit Provider Family Medicine
DX: E78.5 Hyperlipidemia, unspecified (principal); E55.9 Vitamin D deficiency, unspecified; R73.09 Other abnormal glucose
CPT/HCPCS: 36415; 80053; 80061; 82306; 83036; 85025

== ENCOUNTER → 2023-01-31 | Outpatient (CLI) | payer MEDICARE, OTHER, SELFPAY ==
[2023-01-31 17:38] LABS: Absolute Lymphocyte Count 1.52 X10^3/uL (0.83-4.51); Absolute Neutrophil Count 2.9 X10^3/uL (2.0-7.7); Basophil# 0.03 X10^3/uL; Basophil% 0.6 % (0-1); Eosinophil# 0.09 X10^3/uL; Eosinophils% 1.7 % (0-5); Hematocrit 45.6 % (40-54); Hemoglobin 15.7 g/dL (13.0-16.5); Lymphocyte # 1.52 X10^3/ul (0.83-4.51); Lymphocyte % 29.2 % (19-41); Mean Corp Hgb Conc 34.4 g/dL (32-36); Mean Corpuscular Hgb 30.5 pg (27.0-32.0); Mean Corpuscular Volume 88.5 fL (80-94); Mean Platelet Vol. 9.7 fl (6.2-12.0); Monocyte# 0.65 X10^3/uL; Monocyte% 12.5 % (0-10); NRBC Flagged by Analyzer 0 % (0-5); Neutrophil % 55.8 % (47-70); Platelet Count 212 K/mm3 (150-450); Red Blood Count 5.15 M/mm3 (4.6-6.2); White Blood Count 5.2 K/mm3 (4.4-11.0)
[2023-01-31 18:08] LABS: Vitamin D,25 Hydroxy 54.2 ng/mL
[2023-01-31 18:12] LABS: ALB/GLOB Ratio 0.9 RATIO (0.9-2.4); AST(SGOT) 20 U/L (15-37); Alanine Aminotransfer ALT/SGPT 27 U/L (16-61); Albumin, Serum 3.7 g/dL (3.2-5.0); Alkaline Phosphatase 70 U/L (45-117); Anion Gap 6 (5-15); BUN 19 mg/dL (7-18); BUN/Creat Ratio 20.7 RATIO (10-20); Calcium,Total 8.9 mg/dL (8.5-10.1); Chloride 107 mmol/L (98-107); Cholesterol 200 mg/dL (200); Creatinine, Serum 0.92 mg/dL (0.70-1.30); EST Glomerular Filtration Rate 86 mL/min (>60); Est Glom Filt Rate - Afr Amer 104 mL/min (>60); Glucose 102 mg/dL (74-106); High Density Lipoprotein 50 mg/dL; PSA,Total - Annual Screen 1.69 ng/mL (0.00-4.00); Potassium 3.9 mmol/L (3.5-5.1); Protein, Total 7.7 g/dL (6.4-8.2); Sodium Level 138 mmol/L (136-145); Triglycerides 108 mg/dL; Very Low Density Lipoprotein 22 mg/dL (5-40)
== END | disposition home or self-care (01) ==
LOC: MFPLAB 16:52
PROVIDERS: PCP Family Medicine; Visit Provider Family Medicine
DX: Z12.5 Encounter for screening for malignant neoplasm of prostate (principal); E78.5 Hyperlipidemia, unspecified; E55.9 Vitamin D deficiency, unspecified
CPT/HCPCS: 36415; 80053; 80061; 82306; 84153; 85025; G0103

== ENCOUNTER → 2023-08-22 | Outpatient (CLI) | payer MEDICARE, OTHER, SELFPAY ==
[2023-08-22 12:33] LABS: Absolute Lymphocyte Count 0.98 X10^3/uL (0.83-4.51); Absolute Neutrophil Count 2.8 X10^3/uL (2.0-7.7); Basophil# 0.01 X10^3/uL; Basophil% 0.2 % (0-1); Eosinophil# 0.06 X10^3/uL; Eosinophils% 1.4 % (0-5); Hemoglobin 15.5 g/dL (13.0-16.5); Lymphocyte # 0.98 X10^3/ul (0.83-4.51); Lymphocyte % 23.1 % (19-41); Mean Corp Hgb Conc 33.7 g/dL (32-36); Mean Corpuscular Hgb 30.4 pg (27.0-32.0); Mean Corpuscular Volume 90.2 fL (80-94); Monocyte# 0.43 X10^3/uL; Monocyte% 10.1 % (0-10); NRBC Flagged by Analyzer 0 % (0-5); Neutrophil # 2.75 X10^3/uL (2.7-7.7); Platelet Count 205 K/mm3 (150-450); RBC Distribution Width CV 12.2 % (11.6-14.6); RBC Distribution Width SD 40.6 fl (35.1-43.9); White Blood Count 4.2 K/mm3 (4.4-11.0)
[2023-08-22 13:05] LABS: ALB/GLOB Ratio 0.9 RATIO (0.9-2.4); AST(SGOT) 27 U/L (15-37); Alanine Aminotransfer ALT/SGPT 26 U/L (16-61); Albumin, Serum 3.6 g/dL (3.2-5.0); Alkaline Phosphatase 65 U/L (45-117); Anion Gap 6 (5-15); BUN 16 mg/dL (7-18); BUN/Creat Ratio 20.8 RATIO (10-20); Calcium,Total 9.1 mg/dL (8.5-10.1); Chloride 106 mmol/L (98-107); Cholesterol 134 mg/dL (200); Creatinine, Serum 0.77 mg/dL (0.70-1.30); EST Glomerular Filtration Rate 106 mL/min (>60); Est Glom Filt Rate - Afr Amer 128 mL/min (>60); Globulin 3.9 g/dL (2.2-4.2); Glucose 113 mg/dL (74-106); High Density Lipoprotein 54 mg/dL; Potassium 4.4 mmol/L (3.5-5.1); Protein, Total 7.5 g/dL (6.4-8.2); Sodium Level 137 mmol/L (136-145); Triglycerides 43 mg/dL; Very Low Density Lipoprotein 9 mg/dL (5-40)
[2023-08-22 14:35] LABS: Vitamin D,25 Hydroxy 55.7 ng/mL
[2023-08-24 18:20] LABS: Hemoglobin A1c 5.2 % (3.8-5.6)
== END | disposition home or self-care (01) ==
LOC: MFPLAB 09:54
PROVIDERS: PCP Family Medicine; Visit Provider Family Medicine
DX: Z00.00 Encounter for general adult medical examination without abnormal findings (principal); E78.5 Hyperlipidemia, unspecified; E55.9 Vitamin D deficiency, unspecified; R73.09 Other abnormal glucose
CPT/HCPCS: 36415; 80053; 80061; 82306; 83036; 85025

== ENCOUNTER → 2024-03-19 | Outpatient (CLI) | payer MEDICARE, OTHER, SELFPAY ==
[2024-03-19 17:24] LABS: Absolute Lymphocyte Count 1.39 X10^3/uL (0.83-4.51); Basophil# 0.02 X10^3/uL; Basophil% 0.4 % (0-1); Eosinophil# 0.14 X10^3/uL; Eosinophils% 2.6 % (0-5); Hematocrit 47.8 % (40-54); Hemoglobin 16.3 g/dL (13.0-16.5); Lymphocyte # 1.39 X10^3/ul (0.83-4.51); Lymphocyte % 26.2 % (19-41); Mean Corp Hgb Conc 34.1 g/dL (32-36); Mean Corpuscular Hgb 30.4 pg (27.0-32.0); Mean Corpuscular Volume 89.2 fL (80-94); Mean Platelet Vol. 9.1 fl (6.2-12.0); Monocyte# 0.77 X10^3/uL; Monocyte% 14.5 % (0-10); NRBC Flagged by Analyzer 0 % (0-5); Neutrophil # 2.96 X10^3/uL (2.7-7.7); Neutrophil % 55.9 % (47-70); Platelet Count 219 K/mm3 (150-450); RBC Distribution Width CV 12.3 % (11.6-14.6); RBC Distribution Width SD 40.5 fl (35.1-43.9); Red Blood Count 5.36 M/mm3 (4.6-6.2); White Blood Count 5.3 K/mm3 (4.4-11.0)
[2024-03-19 18:39] LABS: ALB/GLOB Ratio 0.9 RATIO (0.9-2.4); AST(SGOT) 32 U/L (15-37); Alanine Aminotransfer ALT/SGPT 36 U/L (16-61); Albumin, Serum 3.9 g/dL (3.2-5.0); Alkaline Phosphatase 73 U/L (45-117); Anion Gap 5 (5-15); BUN 15 mg/dL (7-18); BUN/Creat Ratio 16.7 RATIO (10-20); Calcium,Total 9.5 mg/dL (8.5-10.1); Chloride 105 mmol/L (98-107); Cholesterol 157 mg/dL (200); EST Glomerular Filtration Rate 88 mL/min (>60); Est Glom Filt Rate - Afr Amer 107 mL/min (>60); Globulin 4.5 g/dL (2.2-4.2); Glucose 97 mg/dL (74-106); High Density Lipoprotein 64 mg/dL; PSA,Total - Annual Screen 2.22 ng/mL (0.00-4.00); Potassium 4.6 mmol/L (3.5-5.1); Protein, Total 8.4 g/dL (6.4-8.2); Sodium Level 137 mmol/L (136-145); Triglycerides 75 mg/dL; Very Low Density Lipoprotein 15 mg/dL (5-40)
[2024-03-20 09:27] LABS: Hepatitis C Antibody Non-Reactive (Nonreactive); Vitamin D,25 Hydroxy 45.8 ng/mL
[2024-03-21 15:09] LABS: PROEL- A/G Ratio 1.2 (0.7-1.7); PROEL- Albumin 4.1 g/dL (2.9-4.4); PROEL- Alpha-1 Globulin 0.2 g/dL (0.0-0.4); PROEL- Alpha-2 Globulin 0.6 g/dL (0.4-1.0); PROEL- Gamma Globulin 1.7 g/dL (0.4-1.8); PROEL- Globulin, Total 3.5 g/dL (2.2-3.9); PROEL- TOTAL PROTEIN 7.6 g/dL (6.0-8.5); PROEL-M-Spike Not Observed g/dL (Not Observed)
== END | disposition home or self-care (01) ==
LOC: POLAB3 17:09
PROVIDERS: PCP Family Medicine Geriatric Medicine; Visit Provider Family Medicine Geriatric Medicine
DX: Z12.5 Encounter for screening for malignant neoplasm of prostate (principal); E87.1 Hypo-osmolality and hyponatremia; R53.83 Other fatigue; E78.5 Hyperlipidemia, unspecified; E55.9 Vitamin D deficiency, unspecified; Z13.89 Encounter for screening for other disorder
CPT/HCPCS: 36415; 80053; 80061; 82306; 84153; 84165; 84443; 85025; 86803; G0103

== ENCOUNTER → 2024-09-17 | Outpatient (CLI) | payer MEDICARE, OTHER, SELFPAY ==
[2024-09-17 13:15] LABS: Absolute Lymphocyte Count 1.46 X10^3/uL (0.83-4.51); Absolute Neutrophil Count 3.6 X10^3/uL (2.0-7.7); Basophil# 0.02 X10^3/uL; Basophil% 0.3 % (0-1); Eosinophil# 0.08 X10^3/uL; Eosinophils% 1.3 % (0-5); Hematocrit 43.2 % (40-54); Lymphocyte # 1.46 X10^3/ul (0.83-4.51); Lymphocyte % 24.5 % (19-41); Mean Corp Hgb Conc 34.7 g/dL (32-36); Mean Corpuscular Hgb 30.3 pg (27.0-32.0); Mean Corpuscular Volume 87.3 fL (80-94); Monocyte# 0.73 X10^3/uL; Monocyte% 12.3 % (0-10); NRBC Flagged by Analyzer 0 % (0-5); Neutrophil # 3.64 X10^3/uL (2.7-7.7); Neutrophil % 61.3 % (47-70); Platelet Count 208 K/mm3 (150-450); RBC Distribution Width CV 12.2 % (11.6-14.6); Red Blood Count 4.95 M/mm3 (4.6-6.2)
[2024-09-17 14:01] LABS: ALB/GLOB Ratio 1.2 RATIO (0.9-2.4); AST(SGOT) 27 U/L (<=37); Alanine Aminotransfer ALT/SGPT 16 U/L (<=46); Albumin, Serum 4.1 g/dL (3.4-4.8); Alkaline Phosphatase 68 U/L (40-129); Anion Gap 10 (5-15); BUN 13 mg/dL (4-19); BUN/Creat Ratio 17.8 RATIO (10-20); Calcium,Total 9.3 mg/dL (7.6-11.0); Carbon Dioxide 22.7 mmol/L (21.0-32.0); Chloride 103 mmol/L (98-108); Creatinine, Serum 0.72 mg/dL (0.70-1.20); EST Glomerular Filtration Rate 97 (>60); Globulin 3.4 g/dL (2.2-4.2); Glucose 107 mg/dL (70-99); Potassium 4.3 mmol/L (3.3-5.1); Protein, Total 7.5 g/dL (5.9-8.4); Sodium Level 135 mmol/L (133-145); Total Bilirubin 0.89 mg/dL (0.00-1.30); Vitamin D,25 Hydroxy 32.1 ng/mL (30-100)
[2024-09-23 01:07] LABS: Lyme IgG P18 Ab Absent (.); Lyme IgG P23 Ab Absent (.); Lyme IgG P28 Ab Absent (.); Lyme IgG P30 Ab Absent (.); Lyme IgG P39 Ab Absent (.); Lyme IgG P41 Ab Absent (.); Lyme IgG P45 Ab Absent (.); Lyme IgG P58 Ab Absent (.); Lyme IgG P66 Ab Absent (.); Lyme IgG P93 Ab Absent (.); Lyme IgG WB Interpretation Negative (Negative); Lyme IgM P23 Ab Present (.); Lyme IgM P39 Ab Absent (.); Lyme IgM P41 Ab Absent (.); Lyme IgM WB Interpretation Negative (Negative)
== END | disposition home or self-care (01) ==
LOC: LAB 12:39
PROVIDERS: PCP Family Medicine Geriatric Medicine; Referring Provider Family Medicine Geriatric Medicine; Visit Provider Family Medicine Geriatric Medicine
DX: E55.9 Vitamin D deficiency, unspecified (principal); R53.83 Other fatigue; W57.XXXA Bitten or stung by nonvenomous insect and other nonvenomous arthropods, initial encounter
CPT/HCPCS: 36415; 80053; 82306; 84443; 85025; 86617

== ENCOUNTER → 2025-03-20 | Outpatient (CLI) | payer MEDICARE, OTHER, SELFPAY ==
[2025-03-20 12:16] LABS: Hematocrit 49.7 % (40-54); Hemoglobin 17.0 g/dL (13.0-16.5); Immature Granulocytes Count 0.020 X10^3/uL (0.0-0.0); Mean Corp Hgb Conc 34.2 g/dL (32-36); Mean Corpuscular Volume 87.0 fL (80-94); Mean Platelet Vol. 9.4 fl (6.2-12.0); NRBC Flagged by Analyzer 0 % (0-5); Platelet Count 235 K/mm3 (150-450); RBC Distribution Width CV 12.3 % (11.6-14.6); RBC Distribution Width SD 39.3 fl (35.1-43.9); Red Blood Count 5.71 M/mm3 (4.6-6.2); White Blood Count 5.2 K/mm3 (4.4-11.0)
[2025-03-20 12:47] LABS: Vitamin D,25 Hydroxy 39.4 ng/mL (30-100)
[2025-03-20 12:57] LABS: AST(SGOT) 28 U/L (<=37); Alanine Aminotransfer ALT/SGPT 19 U/L (<=46); Albumin, Serum 4.5 g/dL (3.4-4.8); Alkaline Phosphatase 74 U/L (40-129); Anion Gap 10 (5-15); BUN 15 mg/dL (4-19); BUN/Creat Ratio 16.9 RATIO (10-20); Calcium,Total 10.0 mg/dL (7.6-11.0); Carbon Dioxide 26.4 mmol/L (21.0-32.0); Chloride 101 mmol/L (98-108); Globulin 4.1 g/dL (2.2-4.2); Glucose 112 mg/dL (70-99); Potassium 5.1 mmol/L (3.3-5.1)
--- OUTSIDE RECORDS SUMMARY | 2025-03-24 07:41 | XMS RPT_ITS | CCD ---
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 Julio Sanchez Primary Care Provider [phone] Dr. Julio Sanchez Referring Provider Dr. Dong Bowen Attending Provider Dr. Dong Bowen Other Provider Jesus PALACIOS, Dr. Melquiades Jamison Primary Care Provider Jesus PALACIOS, Dr. Melquiades Jamison Attending Provider Jesus PALACIOS, Dr. Melquiades Jamison Referring Provider Luis F Hemphill Attending Unavailable Jesus, Melquiades Chi Primary Care Unavailable Jesus, Melquiades Chi Attending Unavailable Jesus, Melquiades Chi Referring Unavailable Jesus, Melquiades Chi Primary Care Unavailable Jesus, Melquiades Chi Primary Care Unavailable Jesus, Melquiades Chi Attending Unavailable Jesus, Melquiades Chi Primary Care Unavailable Jesus, Melquiades Chi Referring Unavailable Willy Walker Attending Unavailable Medications Current Medications Medication Drug Class(es) Dates Sig (Normalized) Sig (Original) celecoxib 100 mg oral capsule (1 source) Nonsteroidal Anti-inflammatory Drug Start: 04-21-2024 take 1 capsule by mouth twice daily Celecoxib (Celebrex) 100 mg capsule Active 100 mg PO TWICE A DAY April 21, 2024 1:00am Do not take in conjunction with other NSAID. Tylenol is okay. dorzolamide 20 mg/ml / timolol 5 mg/ml ophthalmic solution (3 sources) Carbonic Anhydrase Inhibitor, beta-Adrenergic Clarissa Start: 04-21-2024 Dorzolamide-Timol ol 22.3-6.8 mg/mL drops Active OPHTHALMIC April 21, 2024 1:00am Start: 06-24-2020 Dorzolamide-Ti molol Active 1 DRP OPHTHALMIC TWICE A DAY June 24, 2020 9:44am latanoprost 0.05 mg/ml ophthalmic solution (5 sources) Prostaglandin Analog Start: 06-07-2017 Latanoprost 0.005 % drops Active 1 NMA OPHTHALMIC daily June 07, 2017 1:00am Multivitamin preparation (2 sources) Start: 03-27-2022 take 1 capsule by mouth once daily Multivitamin Active 1 CAP PO DAILY March 27, 2022 1:00am Start: 03-27-2022 take 1 capsule by mo uth once daily Multivitamin Active 1 CAP PO DAILY March 27, 2022 12:00am omeprazole 20 mg delayed release oral capsule (10 sources) Proton Pump Inhibitor Start: 06-24-2020 take 1 capsule by mouth once daily Omeprazole 20 mg capsule,delayed release(DR/EC) Active 20 mg PO DAILY June 24, 2020 1:00am Start: 07-06-2017 End: 06-24-2020 take 1 capsule by mouth once daily Omeprazole 40 MG capsule,delayed release(DR/EC) Discontinued 40 mg PO DAILY 60 July 06, 2017 12:00am June 24, 2020 9:43am Timolol (5 sources) beta-Adrenergic Clarissa Start: 06-07-2017 Timolo l Active 1 DRP OPHTHALMIC TWICE A DAY June 07, 2017 8:42am Start: 06-07-2017 End: 04-21-2024 take 0.5 drop(s) into the eye(s) twice daily Timolol 0.5 % drops Discontinued 1 NMA OPHTHALMIC TWICE A DAY June 07, 2017 1:00am April 21, 2024 9:31am Start: 06-07-2017 Timolol Active 1 DRP OPHTHALMIC TWICE A DAY June 07, 2017 1:00am Start: 06-07-2017 Timolol Active 1 DRP OPHTHALMIC TWICE A DAY June 07, 2017 12:00am Completed/Discontinued Medications Medication Drug Class(es) Dates Sig (Normalized) Sig (Original) aspirin 81 mg delayed release oral tablet (10 sources) Platelet Aggregation Inhibitor, Nonsteroidal Anti-inflammatory Drug Start: 06-24-2020 End: 04-21-2024 Aspirin (Adult Low Dose Aspirin) 81 mg tablet,delayed release (DR/EC) Discontinued 81 mg PO DAILY June 24, 2020 1:00am April 21, 2024 9:31am Start: 06-07-2017 End: 06-24-2020 take 1 tablet by mouth once daily Aspirin 325 mg tablet,delayed release (DR/EC) Discontinued 325 mg PO daily June 07, 2017 1:00am June 24, 2020 9:42am lisinopril 5 mg oral tablet (5 sources) Angiotensin Converting Enzyme Inhibitor Start: 06-07-2017 End: 06-24-2020 take 1 tablet by mouth once daily Lisinopril 5 mg tablet Discontinued 5 mg PO daily June 07, 2017 1:00am June 24, 2020 9:43am Multivitamin Capsule (1 source) Start: 03-27-2022 End: 04-21-2024 Multivitamin Capsule Discontinued 1 NMA PO DAILY March 27, 2022 1:00am April 21, 2024 9:31am polyethylene glycol 3350 73423 mg powder for oral solution (5 sources) Osmotic Laxative Start: 06-07-2017 End: 06-24-2020 take 17 g by mouth once daily as needed for constipation Polyethylene Glycol 3350 17 gram/dose powder Discontinued 17 g PO daily as needed for Constipation June 07, 2017 1:00am June 24, 2020 9:43am psyllium 3400 mg powder for oral suspension (5 sources) Start: 06-07-2017 End: 06-24-2020 take 1 [tsp_us] by mouth once daily Psyllium Seed (Sugar) (Metamucil (Sugar)) powder Discontinued 1 tsp PO daily June 07, 2017 1:00am June 24, 2020 9:44am Start: 06-07-2017 End: 06-24-2020 take 1 [tsp_us] by mouth once daily Psyllium Seed (Sugar) (Metamucil (Sugar)) powder Discontinued 1 tsp PO daily June 07, 2017 1:00am June 24, 2020 9:44am Problems Active Problems Problem Classification Problem Date Documented Da te Episodic/Chronic Abdominal pain (5 sources) Abdominal pain; Translations: [Unspecified abdominal pain] 06-24-2020 Episodic Esophageal disorders (5 sources) Gastroesophageal reflux disease; Translations: [Gastro-esophageal reflux disease without esophagitis] 03-27-2022 Chronic Comment on above: CONTROLLED WITH MED Essential hypertension (5 sources) Hypertensive disorder; Translations: [Essential (primary) hypertension] 03-27-2022 Chronic Comment on above: NO MEDS FOR 2 YRS AG O Nutritional deficiencies (1 source) Vitamin D deficiency, unspecified; Translations: [Vitamin D deficiency, unspecified] Onset: Chronic Osteoarthritis (5 sources) Arthritis; Translations: [Unspecified osteoarthritis, unspecified site] 06-24-2020 Chronic Other connective tissue disease (1 source) Patellar bursitis of right knee; Translations: [Other bursitis of knee, right knee] 04-21-2024 Episodic Other gastrointestinal disorders (2 sources) Alteration in bowel elimination; Translations: [Change in bowel habit] Episodic Other gastrointestinal disorders (5 sources) History of James's esophagus; Translations: [Personal history of other diseases of the digestive system] 06-24-2020 Episodic Other gastrointestinal disorders (5 sources) Constipation; Translations: [Constipation, unspecified] 06-24-2020 Episodic Other gastrointestinal disorders (3 sources) Altered bowel function; Translations: [Change in bowel habit] 06-24-2020 Episodic Other gastrointestinal disorders (1 source) Personal history of other diseases of the digestive system; Translations: [Personal history of other diseases of digestive system] Episodic Residual codes; unclassified (5 sources) Past history of procedure; Translations: [Other specified postprocedural states] 06-24-2020 Episodic Comment on above: 06/08/2017 Residual codes; unclassified (5 sources) History of colonoscopy; Translations: [Other specified postprocedural states] 06-24-2020 Episodic Comment on above: 06/08/2017 Residual codes; unclassified (1 source) History of repair of retina for retinal detachment; Translations: [Other specified postprocedural states] 03-27-2022 Episodic Comment on above: LEFT Past or Other Problems Problem Classification Problem Date Documented Da te Episodic/Chronic Other connective tissue disease (1 source) Other bursitis of knee, right knee; Translations: [Other bursitis of knee, right knee] Onset: 04-21-2024 Episodic Other non-traumatic joint disorders (1 source) Pain in right knee; Translations: [Pain in right knee] Onset: 04-21-2024 Episodic Other screening for suspected conditions (not mental disorders or infectious disease) (1 source) Encounter for screening for malignant neoplasm of prostate; Translations: [Encounter for screening for malignant neoplasm of prostate] Onset: 04-17-2024 Episodic Results Test Name Value Interpretation Reference Range Facility Lyme AntibodiesGlennon Lyme Additional Comment Normal . [facility] Comment on above: Result Comment: Per CDC criteria, the Lyme IgG Immunoblot is interpreted as positive if IgG-class antibodies are detected to 5 or more B. burgdorferi proteins, and the Lyme IgM Immunoblot is interpreted as positive if IgM-class antibodies are detected to 2 or more B. burgdorferi proteins. Immunoblot patterns not meeting these criteria should not be interpreted as positive. Epitopes from certain B. burgdorferi proteins (e.g., p41) are conserved across other bacteria, which may lead to the detection of IgM-and/or IgG class antibodies on the Lyme disease immunoblots in patients without Lyme disease. Immunoblot should only be ordered on specimens that are positive or equivocal by an FDA-licensed Lyme disease antibody screening test (e.g., EIA). Results of the Lyme IgM immunoblot should not be considered in patients with 30 or more days of symptoms. Performed at: [address] [id number] [place] Worker: Ana Zhao MD, Phone: [phone] Performed By: #### L [id number], L506.1001, L100.0100, L500.4050, [id number] #### [facility] [address] [place], [address] LYME IgG INTERP Negative Normal Negative [facility] Comment on above: Performed By: #### L [id number], L506.1001, L100.0100, L500.4050, [id number] #### [facility] [address] [place], [place], [id number] LYME IgM INTERP Negative Normal Negative [facility] Comment on above: Result Comment: Plea se Note: Lyme immunoblot alone is not recommended for the diagnosis of Lyme disease. Current guidelines recommend the use of a two-tiered approach to Lyme serology testing to improve the sensitivity and specificity of testing. [facility] offers test code 628925 Lyme Disease Serology with Reflex to aid in the diagnosis of Lyme Disease. Performed By: #### L [id number], L506.1001, L100.0100, L500.4050, [id number] #### [facility] [address] [place], [address] P18 Ab Absent Normal . [facility] Comment on above: Performed By: #### L [id number], L506.1001, L100.0100, L500.4050, [id number] #### [facility] [address] [place], [address] P23 Ab Absent Normal . [facility] Comment on above: Performed By: #### L [id number], L506.1001, L100.0100, L500.4050, [id number] #### [facility] [address] [place], [address] P23 Ab Present Normal . [facility] Comment on above: Performed By: #### L [id number], L506.1001, L100.0100, L500.4050, [id number] #### [facility] [address] [place], [address] P28 Ab Absent Normal . [facility] Comment on above: Performed By: #### L [id number], L506.1001, L100.0100, L500.4050, [id number] #### [facility] [address] [place], [address] P30 Ab Absent Normal . [facility] Comment on above: Performed By: #### L [id number], L506.1001, L100.0100, L500.4050, [id number] #### [facility] [address] [place], [address] P39 Ab Absent Normal . [facility] Comment on above: Performed By: #### L [id number], L506.1001, L100.0100, L500.4050, [id number] #### [facility] [address] [place], [address] P41 Ab Absent Normal . [facility] Comment on above: Performed By: #### L [id number], L506.1001, L100.0100, L500.4050, [id number] #### [facility] [address] [place], [address] P45 Ab Absent Normal . [facility] Comment on above: Performed By: #### L [id number], L506.1001, L100.0100, L500.4050, [id number] #### [facility] [address] [place], [address] P58 Ab Absent Normal . [facility] Comment on above: Performed By: #### L [id number], L506.1001, L100.0100, L500.4050, [id number] #### [facility] [address] [place], [address] P66 Ab Absent Normal . [facility] Comment on above: Performed By: #### L [id number], L506.1001, L100.0100, L500.4050, [id number] #### [facility] [address] [place], [address] P93 Ab Absent Normal . [facility] Comment on above: Performed By: #### L [id number], L506.1001, L100.0100, L500.4050, [id number] #### [facility] [address] [place], [address] Absolute lymphocyte countOrd ered By: Melquiades Lee on 09-17-2024 Lymphocytes Auto (Unsp spec) [#/Vol] 1.46 10*3/uL 0.83-4.51 [facility] Absolute neutrophil countOrd ered By: Melquiades Lee on 09-17-2024 Neutrophils (Bld) [#/Vol] 3.6 10*3/uL 2.0-7.7 [facility] Anion gap in Serum or Plasma Ordered By: Melquiades Lee on 09-17-2024 Anion gap [Moles/Vol] 10 mmol/L 5-[address] [facility] Automated lymphocyte count a s percentage of total leukocytesOrdered By: Melquiades Lee on 09-17-2024 Lymphocytes/100 WBC Auto (Unsp spec) 24.5 % - [facility] BUN/creatinine ratioOrdered By: [facility] 09-17-2024 Urea nitrogen/Creatinine [Mass ratio] 17.8 mg/mg 10- [facility] Basophil percentageOrdered B y: Melquiades Lee on 09-17-2024 Basophils/100 WBC (Bld) 0.3 % 0-1 [facility] Bilirubin, totalOrdered By: Melquiades Lee on 09-17-2024 Bilirubin [Mass/Vol] 0.89 mg/dL 0.00-1.30 [facility] CBC W/Diff, Automatedon Absolute Lymph 1.46 X10 3/uL Normal 0.83-4.51 [facility] Comment on above: Performed By: #### L 501.9520, L506.1001, L100.0100, L500.4050, [id number] #### [facility] [address] [place], [address] Absolute Neut 3.6 X10 3/uL Normal 2.0-7.7 [facility] Comment on above: Performed By: #### L 501.9520, L506.1001, L100.0100, L500.4050, [id number] #### [facility] [address] [place], [address] Basophils/100 WBC (Bld) 0.3 % Normal 0-1 [facility] Comment on above: Performed By: #### L 501.9520, L506.1001, L100.0100, L500.4050, [id number] #### [facility] [address] [place], [address] Eosinophils/100 WBC (Bld) 1.3 % Normal 0-5 [facility] Comment on above: Performed By: #### L 501.9520, L506.1001, L100.0100, L500.4050, [id number] #### [facility] [address] [place], [address] Erythrocyte distribution width (RBC) [Ratio] 12.2 % Normal 11.6-14.6 [facility] Comment on above: Performed By: #### L 501.9520, L506.1001, L100.0100, L500.4050, [id number] #### [facility] [address] [place], [address] Hematocrit (Bld) [Volume fraction] 43.2 % Normal 40-54 [facility] Comment on above: Performed By: #### L 501.9520, L506.1001, L100.0100, L500.4050, [id number] #### [facility] [address] [place], [address] Hemoglobin (Bld) [Mass/Vol] 15.0 g/dL Normal 13.0-16.5 [facility] Comment on above: Performed By: #### L 501.9520, L506.1001, L100.0100, L500.4050, [id number] #### [facility] [address] [place], [address] IG% 0.300 Normal 0.0-0.9 [facility] Comment on above: Result Comment: IG% - Immature Granulocytes (promyelocytes, myelocytes and metamyelocytes) > 1% indicates that a LEFT SHIFT is Present. Performed By: #### L 501.9520, L506.1001, L100.0100, L500.4050, L7000.5800 #### [facility] [address] [place], [address] Lymphocytes/100 WBC (Bld) 24.5 % Normal 19-41 [facility] Comment on above: Performed By: #### L 501.9520, L506.1001, L100.0100, L500.4050, L7000.5800 #### [facility] [address] [place], [address] MCH (RBC) [Entitic mass] 30.3 pg Normal 27.0-32.0 [facility] Comment on above: Performed By: #### L 501.9520, L506.1001, L100.0100, L500.4050, L7000.5800 #### [facility] [address] [place], [address] MCHC (RBC) [Mass/Vol] 34.7 g/dL Normal 32-[address] [facility] Comment on above: Performed By: #### L 501.9520, L506.1001, L100.0100, L500.4050, [id number] #### [facility] [address] [place], [address] MCV (RBC) [Entitic vol] 87.3 fL Normal 80-94 [facility] Comment on above: Performed By: #### L 501.9520, L506.1001, L100.0100, L500.4050, [id number] #### [facility] [address] [place], [address] Monocytes/100 WBC (Bld) 12.3 % High 0-10 [facility] Comment on above: Performed By: #### L 501.9520, L506.1001, L100.0100, L500.4050, L7000.5800 #### [facility] [address] [place], [address] Neutrophils/100 WBC (Bld) 61.3 % Normal 47-70 [facility] Comment on above: Performed By: #### L 501.9520, L506.1001, L100.0100, L500.4050, [id number] #### [facility] [address] [place], [address] Nucleated RBC (Bld) [#/Vol] 0 10*3/uL Normal 0-5 [facility] Comment on above: Performed By: #### L 501.9520, L506.1001, L100.0100, L500.4050, [id number] #### [facility] [address] [place], [address] Platelet mean volume (Bld) [Entitic vol] 9.0 fL Normal 6.2-12.0 [facility] Comment on above: Performed By: #### L 501.9520, L506.1001, L100.0100, L500.4050, L7000.5800 #### [facility] [address] [place], [address] Platelets (Bld) [#/Vol] 208 10*3/uL Normal 150-450 [facility] Comment on above: Performed By: #### L 501.9520, L506.1001, L100.0100, L500.4050, [id number] #### [facility] [address] [place], [address] RBC (Bld) [#/Vol] 4.95 10*6/uL Normal 4.6-6.2 [facility] Comment on above: Performed By: #### L 501.9520, L506.1001, L100.0100, L500.4050, [id number] #### [facility] [address] [place], [address] RDW SD 39.0 fl Normal 35.1-43.9 [facility] Comment on above: Performed By: #### L 501.9520, L506.1001, L100.0100, L500.4050, [id number] #### [facility] [address] [place], [address] WBC (Bld) [#/Vol] 6.0 10*3/uL Normal 4.4-11.0 [facility] Comment on above: Performed By: #### L 501.9520, L506.1001, L100.0100, L500.4050, L7000.5800 #### [facility] [address] [place], [address] Carbon dioxide, total [Moles /volume] in Central venous bloodOrdered By: Melquiades Lee on 09-17-2024 CO2 [Moles/Vol] 22.7 mmol/L 21.0-32.0 [facility] Chloride assayOrdered By: Laz Lee on 09-17-2024 Chloride [Moles/Vol] 103 mmol/L 98-108 [facility] Comprehensive Metabolic Prof ilon 09-17-2024 Albumin [Mass/Vol] 4.1 g/dL Normal 3.4-4.8 [facility] Comment on above: Performed By: #### L 501.9520, L506.1001, L100.0100, L500.4050, L7000.5800 #### [facility] [address] [place], [address] Albumin/Globulin [Mass ratio] 1.2 {ratio} Normal 0.9-2.4 [facility] Comment on above: Performed By: #### L 501.9520, L506.1001, L100.0100, L500.4050, L7000.5800 #### [facility] [address] [place], [address] ALK PHOS 68 U/L Normal 40-129 [facility] Comment on above: Performed By: #### L 501.9520, L506.1001, L100.0100, L500.4050, [id number] #### [facility] [address] [place], [address] ALT [Catalytic activity/Vol] 16 U/L Normal <=46 [facility] Comment on above: Performed By: #### L 501.9520, L506.1001, L100.0100, L500.4050, [id number] #### [facility] [address] [place], [address] AST [Catalytic activity/Vol] 27 U/L Normal <=37 [facility] Comment on above: Performed By: #### L 501.9520, L506.1001, L100.0100, L500.4050, L7000.5800 #### [facility] [address] [place], [address] Bilirubin [Mass/Vol] 0.89 mg/dL Normal 0.00-1.30 [facility] Comment on above: Performed By: #### L 501.9520, L506.1001, L100.0100, L500.4050, L7000.5800 #### [facility] [address] [place], [address] BUN/CRE 17.8 RATIO Normal 10-20 [facility] Comment on above: Performed By: #### L 501.9520, L506.1001, L100.0100, L500.4050, [id number] #### [facility] [address] [place], [address] Calcium [Mass/Vol] 9.3 mg/dL Normal 7.6-11.0 [facility] Comment on above: Performed By: #### L 501.9520, L506.1001, L100.0100, L500.4050, L7000.5800 #### [facility] [address] [place], [address] Chloride [Moles/Vol] 103 mmol/L Normal 98-108 [facility] Comment on above: Performed By: #### L 501.9520, L506.1001, L100.0100, L500.4050, L7000.5800 #### [facility] [address] [place], [address] CO2 [Moles/Vol] 22.7 mmol/L Normal 21.0-32.0 [facility] Comment on above: Performed By: #### L 501.9520, L506.1001, L100.0100, L500.4050, L7000.5800 #### [facility] [address] [place], [address] Creatinine [Mass/Vol] 0.72 mg/dL Normal 0.70-1.[address] [facility] Comment on above: Performed By: #### L 501.9520, L506.1001, L100.0100, L500.4050, L7000.5800 #### [facility] [address] [place], [address] GAP 10 Normal 5-15 [facility] Comment on above: Performed By: #### L 501.9520, L506.1001, L100.0100, L500.4050, L7000.5800 #### [facility] [address] [place], [address] GFR/1.73 sq M.predicted among non-blacks MDRD (S/P/Bld) [Vol rate/Area] 97 mL/min/{1.73_m2} Normal >60 [facility] Comment on above: Result Comment: mL/m in/1.73m2 CKD-EPI Creatinine Equation (2020) Performed By: #### L 501.9520, L506.1001, L100.0100, L500.4050, L7000.5800 #### [facility] [address] [place], [address] Globulin (S) [Mass/Vol] 3.4 g/dL Normal 2.2-4.2 [facility] Comment on above: Performed By: #### L 501.9520, L506.1001, L100.0100, L500.4050, L7000.5800 #### [facility] [address] [place], [address] Glucose [Mass/Vol] 107 mg/dL High 70-99 [facility] Comment on above: Performed By: #### L 501.9520, L506.1001, L100.0100, L500.4050, L7000.5800 #### [facility] [address] [place], [address] Potassium [Moles/Vol] 4.3 mmol/L Normal 3.3-5.[address] [facility] Comment on above: Performed By: #### L 501.9520, L506.1001, L100.0100, L500.4050, L7000.5800 #### [facility] [address] [place], [address] Sodium [Moles/Vol] 135 mmol/L Normal 133-145 [facility] Comment on above: Performed By: #### L 501.9520, L506.1001, L100.0100, L500.4050, L7000.5800 #### [facility] [address] [place], [address] T PROT 7.5 g/dL Normal 5.9-8.4 [facility] Comment on above: Performed By: #### L 501.9520, L506.1001, L100.0100, L500.4050, L7000.5800 #### [facility] [address] [place], [address] Urea nitrogen [Mass/Vol] 13 mg/dL Normal 4-19 [facility] Comment on above: Performed By: #### L 501.9520, L506.1001, L100.0100, L500.4050, L7000.5800 #### [facility] [address] [place], [address] Eosinophil percentageOrdered By: Melquiades Lee on 09-17-2024 Eosinophils/100 WBC (Bld) 1.3 % 0-5 [facility] Erythrocyte distribution wid th ratioOrdered By: Melquiades Lee on 09-17-2024 Erythrocyte distribution width (RBC) [Ratio] 12.2 % 11.6-14.6 [facility] Erythrocyte distribution wid th standard deviationOrdered By: Melquiades Lee on 09-17-2024 Erythrocyte distribution width (RBC) [Ratio] 39.0 fl 35.1-43.9 [facility] Glomerular filtration rate ( GFR) estimation/1.73 sq m using serum, plasma, or whole bOrdered By: Melquiades Lee on 09-17-2024 GFR/1.73 sq M.predicted among non-blacks MDRD (S/P/Bld) [Vol rate/Area] 97 mL/min/{1.73_m2} >60 [facility] Comment on above: mL/min/1.73m2 CKD-EP I Creatinine Equation (2020) Hematocrit Auto (Bld) [Volum e fraction]Ordered By: Melquiades Lee on 09-17-2024 Hematocrit (Bld) [Volume fraction] 43.2 % 40-54 [facility] Hemoglobin measurementOrdere d By: Melquiades Lee 09-17-2024 Hemoglobin (Bld) [Mass/Vol] 15.0 g/dL 13.0-16.5 [facility] Immature granulocytes/100 WB C Auto (Bld)Ordered By: Melquiades Lee on 09-17-2024 Immature granulocytes/100 WBC (Bld) 0.300 % 0.0-0.9 [facility] Comment on above: IG% - Immature Granu locytes (promyelocytes, myelocytes and metamyelocytes) > 1% indicates that a LEFT SHIFT is Present. Laboratory - Chemistry and C hemistry - challengeOrdered By: Melquiades Lee on 09-17-2024 AST [Catalytic activity/Vol] 27 U/L <38 [facility] MCV (mean corpuscular volume ) determinationOrdered By: Melquiades Lee on 09-17-2024 MCV (RBC) [Entitic vol] 87.3 fL 80-94 [facility] Mean corpuscular hemoglobin (MCH) determinationOrdered By: Melquiades Lee on 09-17-2024 MCH (RBC) [Entitic mass] 30.3 pg 27.0-32.0 [facility] Mean corpuscular hemoglobin concentration (MCHC) determinationOrdered By: Melquiades Lee 09-17-2024 MCHC (RBC) [Mass/Vol] 34.7 g/dL 32-[address] [facility] Mean platelet volume determi nationOrdered By: Melquiades Lee on 09-17-2024 Platelet mean volume (Bld) [Entitic vol] 9.0 fL 6.2-12.0 [facility] Monocyte percentageOrdered B y: Melquiades Lee on 09-17-2024 Monocytes/100 WBC (Bld) 12.3 % High 0-10 [facility] Neutrophil percentageOrdered By: Melquiades Lee on 09-17-2024 Neutrophils/100 WBC (Bld) 61.3 % 47-70 [facility] Nucleated red blood cell per centageOrdered By: Melquiades Lee 09-17-2024 Nucleated RBC/100 WBC (Bld) [Ratio] 0 % 0-5 [facility] Platelet countOrdered By: Laz Lee on 09-17-2024 Platelets (Bld) [#/Vol] 208 10*3/uL 150-450 [facility] Potassium measurement (mass/ volume)Ordered By: Melquiades Lee on 09-17-2024 Potassium (Unsp spec) [Mass/Vol] 4.3 mmol/L 3.3-5.1 [facility] RBC Auto (Bld) [#/Vol]Ordere d By: Melquiades Lee on 09-17-2024 RBC (Bld) [#/Vol] 4.95 10*6/uL 4.6-6.2 [facility] Serum creatinine measurement (mass/volume)Ordered By: Melquiades Lee on 09-17-2024 Creatinine [Mass/Vol] 0.72 mg/dL 0.70-1.[address] [facility] Serum globulin measurementOr dered By: Melquiades Lee on 09-17-2024 Globulin (S) [Mass/Vol] 3.4 g/dL 2.2-4.2 [facility] Serum glucose measurement (m ass/volume)Ordered By: Melquiades Lee on 09-17-2024 Glucose [Mass/Vol] 107 mg/dL High 70-99 [facility] Serum or plasma alanine ngo otransferase (ALT) measurementOrdered By: Melquiades Lee on 09-17-2024 ALT [Catalytic activity/Vol] 16 U/L <47 [facility] Serum or plasma albumin maddie urement (mass/volume)Ordered By: Melquiades Lee on 09-17-2024 Albumin [Mass/Vol] 4.1 g/dL 3.4-4.8 [facility] Serum or plasma albumin/glob ulin mass ratioOrdered By: Melquiades Lee on 09-17-2024 Albumin/Globulin [Mass ratio] 1.2 {ratio} 0.9-2.4 [facility] Serum or plasma alkaline larisa sphatase measurementOrdered By: Melquiades Lee 09-17-2024 ALP [Catalytic activity/Vol] 68 U/L 40-129 [facility] Serum or plasma calcium maddie urement (mass/volume)Ordered By: Melquiades Lee 09-17-2024 Calcium [Mass/Vol] 9.3 mg/dL 7.6-11.0 [facility] Serum or plasma urea nitroge n measurement (mass/volume)Ordered By: Melquiades Lee on 09-17-2024 Urea nitrogen [Mass/Vol] 13 mg/dL 4-19 [facility] Sodium levelOrdered By: Melquiades Lee on 09-17-2024 Sodium [Moles/Vol] 135 mmol/L 133-145 [facility] TSH DL <= 0.005 mIU/L QnOrde red By: Melquiades Lee on 09-17-2024 TSH Qn 1.110 uIU/mL 0.300-4.200 [facility] Thyroid Stim Hormone (TSH)on 09-17-2024 TSH 1.110 uIU/mL Normal 0.300-4.200 [facility] Comment on above: Performed By: #### L 501.9520, L506.1001, L100.0100, L500.4050, L7000.5800 #### [facility] [address] [place], [address] Total proteinOrdered By: Melquiades Lee on 09-17-2024 Protein [Mass/Vol] 7.5 g/dL 5.9-8.4 [facility] Vitamin D,25 Hydroxyon 09-17 Vitamin D 25-OH 32.1 ng/mL Normal 30-100 [facility] Comment on above: Result Comment: Anastasia min D Status Deficiency: <20 ng/mL (50nmol/L) Insufficiency: 20-30 ng/mL (50-75 nmol/L) Sufficiency: 30-100 ng/mL (75-250 nmol/L) Toxicity: >100 ng/mL (>250 nmol/L) Performed By: #### L 501.9520, L506.1001, L100.0100, L500.4050, L7000.5800 #### [facility] [address] [place], [address] White blood cell (WBC) count Ordered By: Melquiades Lee on 09-17-2024 WBC (Bld) [#/Vol] 6.0 10*3/uL 4.4-11.0 [facility] Knee 4 or More Viewson 04-21 Knee 4 or More Views [facility] [address] [place] [address] Knee 4 or More Views MR#: [id number] Acct: [id number] Name: MICHAEL JOHNSON Rep #: [id number] : 1950 M 73 From: Emanuel Parker MD PCP: Dr. Melquiades Lee MD Status: DEP AMB Study: Knee 4 or More Views Date of Exam: 04/21/24 Exam# [id number] Ordering Dr: Willy Walker DO [id number] STUDY: X-RAY - RIGHT KNEE REASON FOR EXAM: Male, 73 years old. Painful bump. TECHNIQUE: 4 views of the right knee. COMPARISON: None. FINDINGS: Normal visualized distal femur. 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 There is prominent soft tissue swelling anterior to the tibial tubercle. Normal visualized proximal fibula. Normal proximal tibiofibular articulation. There is no demonstrated fracture. There is mild degenerative arthrosis of the medial femorotibial compartment with joint space narrowing and subchondral cyst formation in the medial tibial plateau. Normal lateral femorotibial compartment. There is mild degenerative arthrosis of the patellofemoral articulation. The soft tissue structures are unremarkable. 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 Prominent soft tissue swelling anterior to the tibial tubercle. 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 Electronically Signed: Emanuel Parker MD at 11:09 EST Reading Location ID and State: [address] [place] [address] , Service support , CC: Dr. Willy Walker DO; Dr. Melquiades Lee MD Junior Network Administrator: Signed Normal [facility] Orthopedic Visit Reporton Orthopedic Visit Report [facility] [facility] [address] [place], [place] [address] OFFICE VISIT Date of Service: 04/21/24 MR#: [id number] Acct: [id number] Name: MICHAEL JOHNSON Rep #: [id number] : 1950 Provider: Dr. Willy olmedo DO Age/Sex: 73/M Location: [facility] Status: Signed Intake Vital Signs 03/28/22 08:32 04/21/24 08:28 Height 5 ft 11 in 5 ft 11 in Weight: 175 lb 4 oz BMI 24.4 Intake Visit Reasons: RIGHT KNEE Accompanied by: Self Allergies No Known Allergies Allergy (Verified 04/21/24 08:30) Medications ???Medication ???Instructions ???Recorded ???Confirmed ???Type latanoprost 0.005 % eye drops 1 drp ophthalmic (eye) QDAY 06/07/17 04/21/24 History omeprazole 20 mg capsule,delayed 20 mg PO DAILY 06/24/20 04/21/24 History release celecoxib 100 mg capsule (Celebrex) 100 mg PO BID #30 caps 04/21/24 04/21/24 Rx dorzolamide 22.3 mg-timolol 6.8 ophthalmic (eye) 04/21/24 04/21/24 History mg/mL eye drops Have you fallen in the past year?: No PFSH Medical History Wears glasses Arthritis Injury of head and neck Non-smoker History of stress test History of James's esophagus GERD (gastroesophageal reflux disease) Change in bowel habit Hypertension Constipation Abdominal pain Arthritis Surgical History History of esophagogastroduodenoscopy (EGD) Hx of colonoscopy Hx of appendectomy Hx of bilateral inguinal hernia repair History of detached retina repair Family History Mother Breast cancer Heart disease CVA (cerebral vascular accident) Thyroid disorder Arthritis Grandmother Diabetes Father Esophagus cancer Cancer skin Hypertension Social History Smoking Status: Never smoker second hand exposure: No alcohol intake: never substance use type: does not use caffeine: Yes what type of physical activity do you participate in: walking frequency: 5-6 times per week HPI RIGHT KNEE Details: This documentation accurately reflects the service provided and the decisions made by me, Dr. Willy Walker, DO 04/21/24 0747. Part of today???s visit was documented by Marissa NIETO, acting as scribe. MICHAEL JOHNSON is a 73 year old M here today NEW patient for his right knee. He states that he has a bump over his anterior knee that is painful. He states that he does a lot of kneeling and whenever he kneels it causes him pain. He states that he has had the bump for 3 years. He states that over 3 years it has gotten bigger. He denies prior injury to the knee. He has tried using knee pads when he is kneeling but he states that it doesn't help. He states that he saw his PCP and they had looked at his knee and referred him to us. He denies recent imaging of the knee. denies any history of gout. Ortho Exam General General: Yes no acute distress Neurologic: Yes alert and Yes oriented x3 Psychologic: Yes reasonable and appropriate Right Knee Skin/Wound: No erythema, No ecchymosis and No swelling Knee ROM: Yes ROM-Extension -20 to 0 and Yes ROM-Flexion 0-140 Examination: No Med jt line tenderness, No Lat jt line tenderness, No Pain with extention, No Ki's Test, No TTP Patellar tendon, Yes TTP Tibial tubercle and No Illiotibial band tenderness Stability: NML: Anterior Drawer, NML: Posterior Drawer, NML: Valgus 0, NML: Valgus 30, NML: Varus 0 and NML: Varus 30 Patella Translation: 1 KNEE: no efusion He does have a prominent tibial tubercle and some overlying prepatellar bursitis there is no erythema or signs of infection there is minimal bursal fluid. It is only mildly tender to palpation no ptaellar instability Left Knee Patella Translation: 1 Office Procedures Office Injections/Aspirations Procedure Detail Procedure performed by: Willy Walker Injection Site: Yes Medication Given: Yes Ortho Injections/Aspirations Yes Knee Right (patellar bursa) Details: Obtained consent for aspiration. Under sterile conditions, aspirated 2cc of blood tinged fluid from the patients right knee patellar bursa. The patient tolerated the aspiration well without any noted complications. Patient should call our office if redness develops, pain worsens or if they have any concerns. Ortho Injections Injections Yes Knee Right (patellar bursa) Is this a patient provided medication?: No Details: Obtained consent for injection. Under sterile conditions, injected the patients right knee patellar bursa with 1cc bupivacaine 1cc depo medrol. The patient tolerated the injection well without any noted complication. Patient should call our office if redness develops, pain wors (more content not included)... Normal [facility] Protein Electroph, Son 03-21 Albumin [Mass/Vol] 4.1 g/dL Normal 2.9-4.4 [facility] Comment on above: Performed By: #### L 501.9520, L506.1001, L100.0100, L500.4050, L7000.5800 #### [facility] [address] [place], [address] Albumin/Globulin [Mass ratio] 1.2 {ratio} Normal 0.7-1.7 [facility] Comment on above: Performed By: #### L 501.9520, L506.1001, L100.0100, L500.4050, L7000.5800 #### [facility] [address] [place], [address] ALPHA-1 GLOBUL 0.2 g/dL Normal 0.0-0.4 [facility] Comment on above: Performed By: #### L 501.9520, L506.1001, L100.0100, L500.4050, L7000.5800 #### [facility] [address] [place], [address] ALPHA-2 GLOBUL 0.6 g/dL Normal 0.4-1.0 [facility] Comment on above: Performed By: #### L 501.9520, L506.1001, L100.0100, L500.4050, L7000.5800 #### [facility] [address] [place], [address] BETA GLOBULIN 1.0 g/dL Normal 0.7-1.3 [facility] Comment on above: Performed By: #### L 501.9520, L506.1001, L100.0100, L500.4050, L7000.5800 #### [facility] [address] [place], [address] GAMMA GLOBULIN 1.7 g/dL Normal 0.4-1.8 [facility] Comment on above: Performed By: #### L 501.9520, L506.1001, L100.0100, L500.4050, L7000.5800 #### [facility] [address] [place], [address] Globulin (S) [Mass/Vol] 3.5 g/dL Normal 2.2-3.9 [facility] Comment on above: Performed By: #### L 501.9520, L506.1001, L100.0100, L500.4050, L7000.5800 #### [facility] [address] [place], [address] INTERPRETATION Comment Normal . [facility] Comment on above: Result Comment: Prot ein electrophoresis scan will follow via computer, mail, or brine room laborer delivery. Performed By: #### L 501.9520, L506.1001, L100.0100, L500.4050, L7000.5800 #### [facility] [address] [place], [address] M-SPIKE Not Observed Normal Not Observed [facility] Comment on above: Performed By: #### L 501.9520, L506.1001, L100.0100, L500.4050, L7000.5800 #### [facility] [address] [place], [address] NOTE: Comment Normal . [facility] Comment on above: Result Comment: The SPE pattern appears unremarkable. Evidence of monoclonal protein is not apparent. Performed at: [address] [id number] [place] Worker: Jordan aGrcia PhD, Phone: [phone] Performed By: #### L 501.9520, L506.1001, L100.0100, L500.4050, L7000.5800 #### [facility] [address] [place], [address] Protein [Mass/Vol] 7.6 g/dL Normal 6.0-8.5 [facility] Comment on above: Performed By: #### L 501.9520, L506.1001, L100.0100, L500.4050, L7000.5800 #### [facility] [address] [place], [address] Hepatitis C Antibodyon 03-20 Hepatitis C AB Non-Reactive Normal Nonreactive [facility] Comment on above: Result Comment: Non Reactive: < 0.8 Equivocal: >/= 0.8 to < 1.0 Reactive: >/= 1.0 The [facility] requires that a reactive/equivocal HCV antibody result be sent out for confirmation. HCV Quant by PCR testing. Performed By: #### L 501.9520, L506.1001, L100.0100, L500.4050, L7000.5800 #### [facility] [address] [place], [address] Vitamin D,25 Hydroxyon 03-20 Vitamin D 25-OH 45.8 ng/mL Normal [facility] Comment on above: Result Comment: Anastasia min D 25(OH) Status Range Deficiency <20 ng/mL (50nmol/L) Insufficiency 20 - 30 ng/mL (50 - 75 nmol/L) Sufficiency 30 - 100 ng/mL (75 - 250 nmol/L) Toxicity >100 ng/mL (>250 nmol/L) Performed By: #### L 501.9520, L506.1001, L100.0100, L500.4050, L7000.5800 #### [facility] [address] [place], [address] CBC W/Diff, Automatedon Absolute Lymph 1.39 X10 3/uL Normal 0.83-4.51 [facility] Comment on above: Performed By: #### L 506.1000, L100.0100, L3100.3450, L500.4100, L500.4050, L501.9520, L501.9910, L3890.6300 #### [facility] [address] [place], [address] Absolute Neut 3.0 X10 3/uL Normal 2.0-7.7 [facility] Comment on above: Performed By: #### L 506.1000, L100.0100, L3100.3450, L500.4100, L500.4050, L501.9520, L501.9910, L3890.6300 #### [facility] [address] [facility] [place], [address] Basophils/100 WBC (Bld) 0.4 % Normal 0-1 [facility] Comment on above: Performed By: #### L 506.1000, L100.0100, L3100.3450, L500.4100, L500.4050, L501.9520, L501.9910, L3890.6300 #### [facility] [address] [place], [address] Eosinophils/100 WBC (Bld) 2.6 % Normal 0-5 [facility] Comment on above: Performed By: #### L 506.1000, L100.0100, L3100.3450, L500.4100, L500.4050, L501.9520, L501.9910, L3890.6300 #### [facility] [address] [place], [address] Erythrocyte distribution width (RBC) [Ratio] 12.3 % Normal 11.6-14.6 [facility] Comment on above: Performed By: #### L 506.1000, L100.0100, L3100.3450, L500.4100, L500.4050, L501.9520, L501.9910, L3890.6300 #### [facility] [address] [place], [address] Hematocrit (Bld) [Volume fraction] 47.8 % Normal 40-54 [facility] Comment on above: Performed By: #### L 506.1000, L100.0100, L3100.3450, L500.4100, L500.4050, L501.9520, L501.9910, L3890.6300 #### [facility] [address] [place], [address] Hemoglobin (Bld) [Mass/Vol] 16.3 g/dL Normal 13.0-16.5 [facility] Comment on above: Performed By: #### L 506.1000, L100.0100, L3100.3450, L500.4100, L500.4050, L501.9520, L501.9910, L3890.6300 #### [facility] [address] [place], [address] IG% 0.400 Normal 0.0-0.9 [facility] Comment on above: Result Comment: IG% - Immature Granulocytes (promyelocytes, myelocytes and metamyelocytes) > 1% indicates that a LEFT SHIFT is Present. Performed By: #### L 506.1000, L100.0100, L3100.3450, L500.4100, L500.4050, L501.9520, L501.9910, L3890.6300 #### [facility] [address] [place], [address] Lymphocytes/100 WBC (Bld) 26.2 % Normal 19-41 [facility] Comment on above: Performed By: #### L 506.1000, L100.0100, L3100.3450, L500.4100, L500.4050, L501.9520, L501.9910, L3890.6300 #### [facility] [address] [place], [address] MCH (RBC) [Entitic mass] 30.4 pg Normal 27.0-32.0 [facility] Comment on above: Performed By: #### L 506.1000, L100.0100, L3100.3450, L500.4100, L500.4050, L501.9520, L501.9910, L3890.6300 #### [facility] [address] [place], [address] MCHC (RBC) [Mass/Vol] 34.1 g/dL Normal 32-[address] [facility] Comment on above: Performed By: #### L 506.1000, L100.0100, L3100.3450, L500.4100, L500.4050, L501.9520, L501.9910, L3890.6300 #### [facility] [address] [place], [address] MCV (RBC) [Entitic vol] 89.2 fL Normal 80-94 [facility] Comment on above: Performed By: #### L 506.1000, L100.0100, L3100.3450, L500.4100, L500.4050, L501.9520, L501.9910, L3890.6300 #### [facility] [address] [place], [address] Monocytes/100 WBC (Bld) 14.5 % High 0-10 [facility] Comment on above: Performed By: #### L 506.1000, L100.0100, L3100.3450, L500.4100, L500.4050, L501.9520, L501.9910, L3890.6300 #### [facility] [address] [place], [address] Neutrophils/100 WBC (Bld) 55.9 % Normal 47-70 [facility] Comment on above: Performed By: #### L 506.1000, L100.0100, L3100.3450, L500.4100, L500.4050, L501.9520, L501.9910, L3890.6300 #### [facility] [address] [place], [address] Nucleated RBC (Bld) [#/Vol] 0 10*3/uL Normal 0-5 [facility] Comment on above: Performed By: #### L 506.1000, L100.0100, L3100.3450, L500.4100, L500.4050, L501.9520, L501.9910, L3890.6300 #### [facility] [address] [place], [address] Platelet mean volume (Bld) [Entitic vol] 9.1 fL Normal 6.2-12.0 [facility] Comment on above: Performed By: #### L 506.1000, L100.0100, L3100.3450, L500.4100, L500.4050, L501.9520, L501.9910, L3890.6300 #### [facility] [address] [place], [address] Platelets (Bld) [#/Vol] 219 10*3/uL Normal 150-450 [facility] Comment on above: Performed By: #### L 506.1000, L100.0100, L3100.3450, L500.4100, L500.4050, L501.9520, L501.9910, L3890.6300 #### [facility] [address] [place], [address] RBC (Bld) [#/Vol] 5.36 10*6/uL Normal 4.6-6.2 [facility] Comment on above: Performed By: #### L 506.1000, L100.0100, L3100.3450, L500.4100, L500.4050, L501.9520, L501.9910, L3890.6300 #### [facility] [address] [place], [address] RDW SD 40.5 fl Normal 35.1-43.9 [facility] Comment on above: Performed By: #### L 506.1000, L100.0100, L3100.3450, L500.4100, L500.4050, L501.9520, L501.9910, L3890.6300 #### [facility] [address] [place], [address] WBC (Bld) [#/Vol] 5.3 10*3/uL Normal 4.4-11.0 [facility] Comment on above: Performed By: #### L 506.1000, L100.0100, L3100.3450, L500.4100, L500.4050, L501.9520, L501.9910, L3890.6300 #### [facility] [address] [place], [place], [id number] Comprehensive Metabolic Prof [facility] 03-19-2024 Albumin [Mass/Vol] 3.9 g/dL Normal 3.2-5.0 [facility] Comment on above: Performed By: #### L 506.1000, L100.0100, L3100.3450, L500.4100, L500.4050, L501.9520, L501.9910, L3890.6300 #### [facility] [address] [place], [place], [address] Albumin/Globulin [Mass ratio] 0.9 {ratio} Normal 0.9-2.4 [facility] Comment on above: Performed By: #### L 506.1000, L100.0100, L3100.3450, L500.4100, L500.4050, L501.9520, L501.9910, L3890.6300 #### [facility] [address] [place], [address] ALK P 73 U/L Normal 45-117 [facility] Comment on above: Performed By: #### L 506.1000, L100.0100, L3100.3450, L500.4100, L500.4050, L501.9520, L501.9910, L3890.6300 #### [facility] [address] [place], [address] ALT [Catalytic activity/Vol] 36 U/L Normal 16-61 [facility] Comment on above: Performed By: #### L 506.1000, L100.0100, L3100.3450, L500.4100, L500.4050, L501.9520, L501.9910, L3890.6300 #### [facility] [address] [place], [address] AST [Catalytic activity/Vol] 32 U/L Normal 15-37 [facility] Comment on above: Performed By: #### L 506.1000, L100.0100, L3100.3450, L500.4100, L500.4050, L501.9520, L501.9910, L3890.6300 #### [facility] [address] [place], [address] Bilirubin [Mass/Vol] 0.70 mg/dL Normal 0.20-1.00 [facility] Comment on above: Result Comment: For patients on eltrombopag therapy, use of Dimension Pala TBIL is not recommended. Performed By: #### L 506.1000, L100.0100, L3100.3450, L500.4100, L500.4050, L501.9520, L501.9910, L3890.6300 #### [facility] [address] [place], [address] BUN/CRE 16.7 RATIO Normal 10-20 [facility] Comment on above: Performed By: #### L 506.1000, L100.0100, L3100.3450, L500.4100, L500.4050, L501.9520, L501.9910, L3890.6300 #### [facility] [address] [place], [address] CA,Total 9.5 mg/dL Normal 8.5-10.1 [facility] Comment on above: Performed By: #### L 506.1000, L100.0100, L3100.3450, L500.4100, L500.4050, L501.9520, L501.9910, L3890.6300 #### [facility] [address] [place], [address] Chloride [Moles/Vol] 105 mmol/L Normal 98-107 [facility] Comment on above: Performed By: #### L 506.1000, L100.0100, L3100.3450, L500.4100, L500.4050, L501.9520, L501.9910, L3890.6300 #### [facility] [address] [place], [address] CO2 [Moles/Vol] 27.0 mmol/L Normal 21.0-32.0 [facility] Comment on above: Performed By: #### L 506.1000, L100.0100, L3100.3450, L500.4100, L500.4050, L501.9520, L501.9910, L3890.6300 #### [facility] [address] [place], [address] Creatinine [Mass/Vol] 0.90 mg/dL Normal 0.70-1.[address] [facility] Comment on above: Result Comment: The validity of the calculated GFR GFRAA in patients over 70 years has not been determined. Clinical correlation is essential. Performed By: #### L 506.1000, L100.0100, L3100.3450, L500.4100, L500.4050, L501.9520, L501.9910, [id number] #### [facility] [address] [place], [address] EST GFR - AA 107 mL/min Normal >60 [facility] Comment on above: Result Comment: Afri can Welsh GFR Calc Performed By: #### L 506.1000, L100.0100, L3100.3450, L500.4100, L500.4050, L501.9520, L501.9910, [id number] #### [facility] [address] [place], [address] GAP 5 Normal 5-15 [facility] Comment on above: Performed By: #### L 506.1000, L100.0100, L3100.3450, L500.4100, L500.4050, L501.9520, L501.9910, [id number] #### [facility] [address] [place], [address] (794) GFR/1.73 sq M.predicted among non-blacks MDRD (S/P/Bld) [Vol rate/Area] 88 mL/min/{1.73_m2} Normal >60 [facility] Comment on above: Result Comment: Non- GFR Calc Performed By: #### L 506.1000, L100.0100, L3100.3450, L500.4100, L500.4050, L501.9520, L501.9910, [id number] #### [facility] [address] [place], [place], [id number] Globulin (S) [Mass/Vol] 4.5 g/dL High 2.2-4.2 [facility] Comment on above: Performed By: #### L 506.1000, L100.0100, L3100.3450, L500.4100, L500.4050, L501.9520, L501.9910, [id number] #### [facility] [address] [place], [address] Glucose [Mass/Vol] 97 mg/dL Normal 74-106 [facility] Comment on above: Performed By: #### L 506.1000, L100.0100, L3100.3450, L500.4100, L500.4050, L501.9520, L501.9910, [id number] #### [facility] [address] [place], [address] Potassium [Moles/Vol] 4.6 mmol/L Normal 3.5-5.[address] [facility] Comment on above: Performed By: #### L 506.1000, L100.0100, L3100.3450, L500.4100, L500.4050, L501.9520, L501.9910, [id number] #### [facility] [address] [place], [address] Sodium [Moles/Vol] 137 mmol/L Normal 136-145 [facility] Comment on above: Performed By: #### L 506.1000, L100.0100, L3100.3450, L500.4100, L500.4050, L501.9520, L501.9910, [id number] #### [facility] [address] [place], [address] T PROT 8.4 g/dL High 6.4-8.2 [facility] Comment on above: Performed By: #### L 506.1000, L100.0100, L3100.3450, L500.4100, L500.4050, L501.9520, L501.9910, [id number] #### [facility] [address] [place], [address] Urea nitrogen [Mass/Vol] 15 mg/dL Normal 7-18 [facility] Comment on above: Performed By: #### L 506.1000, L100.0100, L3100.3450, L500.4100, L500.4050, L501.9520, L501.9910, [id number] #### [facility] [address] [place], [address] Lipid Profileon 03-19-2024 Cholesterol [Mass/Vol] 157 mg/dL Normal 200 [facility] Comment on above: Result Comment: <200 mg/dL Desirable 200-240 mg/dL Borderline >240 mg/dL High Risk Performed By: #### L 506.1000, L100.0100, L3100.3450, L500.4100, L500.4050, L501.9520, L501.9910, [id number] #### [facility] [address] [place], [address] Cholesterol in HDL [Mass/Vol] 64 mg/dL Normal [facility] Comment on above: Result Comment: The drugs N-Acetylcysteine and Metamizole may falsely depress this assay. Reference Range HDL <40 mg/dL Low HDL Cholesterol HDL >or= 60 mg/dL High HDL Cholesterol Performed By: #### L 506.1000, L100.0100, L3100.3450, L500.4100, L500.4050, L501.9520, L501.9910, [id number] #### [facility] [address] [place], [address] Cholesterol in LDL [Mass/Vol] 78 mg/dL Normal 0-130 [facility] Comment on above: Performed By: #### L 506.1000, L100.0100, L3100.3450, L500.4100, L500.4050, L501.9520, L501.9910, [id number] #### [facility] [address] [place], [address] Cholesterol in VLDL [Mass/Vol] 15 mg/dL Normal 5-40 [facility] Comment on above: Performed By: #### L 506.1000, L100.0100, L3100.3450, L500.4100, L500.4050, L501.9520, L501.9910, [id number] #### [facility] [address] [place], [address] Triglyceride [Mass/Vol] 75 mg/dL Normal [facility] Comment on above: Result Comment: The drugs N-Acetylcysteine and Metamizole may falsely depress this assay. Serum Triglycerides Reference Interval Normal <150 mg/dL Borderline high 150 - 199 mg/dL High 200 - 499 mg/dL Very High > or = 500 mg/dL Performed By: #### L 506.1000, L100.0100, L3100.3450, L500.4100, L500.4050, L501.9520, L501.9910, [id number] #### [facility] [address] [place], [address] PSA,Total - Annual Screenon 03-19-2024 PSA,TOT SCREEN 2.22 ng/mL Normal 0.00-4.00 [facility] Comment on above: Result Comment: This test was performed using the TPSA assay method for the [employer] chemistry system. Values obtained with different assay methods cannot be used interchangably. When changing PSA assays in the course of monitoring a patient, additional sequential testing should be carried out to confirm baseline values. Performed By: #### L 506.1000, L100.0100, L3100.3450, L500.4100, L500.4050, L501.9520, L501.9910, [id number] #### [facility] [address] [place], [place], [id number] Thyroid Stim Hormone (TSH)on 03-19-2024 TSH 1.180 uIU/mL Normal 0.358-3.740 [facility] Comment on above: Performed By: #### L 506.1000, L100.0100, L3100.3450, L500.4100, L500.4050, L501.9520, L501.9910, [id number] #### [facility] [address] [place], [address] Absolute lymphocyte countOrd ered By: Julio Sanchez on 09-05-2022 Lymphocytes Auto (Unsp spec) [#/Vol] 1.21 10*3/uL 0.83-4.51 [facility] Basophil percentageOrdered B y: Julio Sanchez on 09-05-2022 Basophils/100 WBC (Bld) 0.5 % 0-1 [facility] Bilirubin [Mass/Vol] 0.70 mg/dL 0.20-1.00 [facility] Comment on above: For patients on eltr ombopag therapy, use of Dimension Pala TBIL is not recommended. Chloride [Moles/Vol] 108 mmol/L 98-107 [facility] Cholesterol [Mass/Vol] 191 mg/dL <200 [facility] Comment on above: <200 mg/dL Desirable 200-240 mg/dL Borderline >240 mg/dL High Risk Eosinophils/100 WBC (Bld) 2.4 % 0-5 [facility] Glucose [Mass/Vol] 113 mg/dL 74-106 [facility] Comment on above: Fasting Glucose resu lt from 100 to 125 mg/dL suggests IMPAIRED HOMEOSTASIS per A.D.A. criteria. Neutrophils (Bld) [#/Vol] 2.3 10*3/uL 2.0-7.7 [facility] Neutrophils/100 WBC (Bld) 55.3 % 47-70 [facility] Potassium [Moles/Vol] 5.0 mmol/L 3.5-5.[address] [facility] Protein [Mass/Vol] 7.6 g/dL 6.4-8.2 [facility] Sodium [Moles/Vol] 139 mmol/L 136-145 [facility] Triglyceride [Mass/Vol] 70 mg/dL <199 [facility] Comment on above: The drugs N-Acetylcy steine and Metamizole may falsely depress this assay.Serum Triglycerides Reference Interval Normal <150 mg/dL Borderline high 150 - 199 mg/dL High 200 - 499 mg/dL Very High > or = 500 mg/dL WBC (Bld) [#/Vol] 4.2 10*3/uL 4.4-11.0 [facility] Blood erythrocytes count (nu mber/volume)Ordered By: Julio Sanchez on 09-05-2022 RBC (Bld) [#/Vol] 5.14 10*6/uL 4.6-6.2 [facility] Blood hemoglobin measurement (mass/volume)Ordered By: Julio Sanchez on 09-05-2022 Hemoglobin (Bld) [Mass/Vol] 15.6 g/dL 13.0-16.5 [facility] Blood lymphocytes/100 leukoc ytesOrdered By: Julio Sanchez on 09-05-2022 Lymphocytes/100 WBC (Bld) 28.9 % 19-41 [facility] Blood monocytes/100 leukocyt esOrdered By: Julio Sanchez on 09-05-2022 Monocytes/100 WBC (Bld) 12.7 % 0-10 [facility] Blood platelet mean volumeOr dered By: Julio Sanchez on 09-05-2022 Platelet mean volume (Bld) [Entitic vol] 9.9 fL 6.2-12.0 [facility] Determination of erythrocyte mean corpuscular volume (MCV)Ordered By: Julio Sanchez on 09-05-2022 MCV (RBC) [Entitic vol] 91.8 fL 80-94 [facility] Hematocrit Auto (Bld) [Volum e fraction]Ordered By: Julio Sanchez on 09-05-2022 Hematocrit (Bld) [Volume fraction] 47.2 % 40-54 [facility] - Chemistry and C hemistry - challengeOrdered By: Julio Sanchez on 09-05-2022 ALP [Catalytic activity/Vol] 67 U/L 45-117 [facility] ALT [Catalytic activity/Vol] 25 U/L 16-61 [facility] CO2 [Moles/Vol] 27.0 mmol/L 21.0-32.0 [facility] Globulin (S) [Mass/Vol] 3.9 g/dL 2.2-4.2 [facility] Urea nitrogen/Creatinine [Mass ratio] 26.3 mg/mg 10-20 [facility] - Hematology and Cell countsOrdered By: Julio Sanchez on 09-05-2022 Erythrocyte distribution width (RBC) [Entitic vol] 41.9 fL 35.1-43.9 [facility] Erythrocyte distribution width (RBC) [Ratio] 12.2 % 11.6-14.6 [facility] Immature granulocytes/100 WBC (Bld) 0.200 % 0.0-0.9 [facility] Comment on above: IG% - Immature Granu locytes (promyelocytes, myelocytes and metamyelocytes) > 1% indicates that a LEFT SHIFT is Present. MCH (RBC) [Entitic mass] 30.4 pg 27.0-32.0 [facility] Nucleated RBC/100 WBC (Bld) [Ratio] 0 % 0-5 [facility] MCHC Auto (RBC) [Mass/Vol]Or dered By: Julio Sanchez on 09-05-2022 MCHC (RBC) [Mass/Vol] 33.1 g/dL 32-[address] [facility] No Panel InformationOrdered By: Julio Sanchez on 09-05-2022 Estimated GFR (MDRD) Amer 117 mL/min >60 [facility] Comment on above: GFR Calc Estimated GFR (MDRD) Non-Af Amer 96 mL/min >60 [facility] Comment on above: Non- GFR Calc Vitamin D 25-Hydroxy 53.4 ng/mL [facility] Comment on above: Vitamin D 25(OH) Sta tus Range Deficiency <20 ng/mL (50nmol/L) Insufficiency 20 - 30 ng/mL (50 - 75 nmol/L) Sufficiency 30 - 100 ng/mL (75 - 250 nmol/L) Toxicity >100 ng/mL (>250 nmol/L) Platelets bldOrdered By: Ted Sanchez on 09-05-2022 Platelets (Bld) [#/Vol] 202 10*3/uL 150-450 [facility] Serum or plasma albumin maddie urement (mass/volume)Ordered By: Julio Sanchez on 09-05-2022 Albumin [Mass/Vol] 3.7 g/dL 3.2-5.0 [facility] Serum or plasma albumin/glob ulin mass ratioOrdered By: Julio Sanchez on 09-05-2022 Albumin/Globulin [Mass ratio] 0.9 {ratio} 0.9-2.4 [facility] Serum or plasma calcium maddie urement (mass/volume)Ordered By: Julio Sanchez on 09-05-2022 Calcium [Mass/Vol] 9.0 mg/dL 8.5-10.1 [facility] Serum or plasma cholesterol in HDL measurement (mass/volume)Ordered By: Julio Sanchez on 09-05-2022 Cholesterol in HDL [Mass/Vol] 51 mg/dL >40 [facility] Comment on above: The drugs N-Acetylcy steine and Metamizole may falsely depress this assay. Reference Range HDL <40 mg/dL Low HDL Cholesterol HDL >or= 60 mg/dL High HDL Cholesterol Serum or plasma cholesterol in VLDL measurement (mass/volume)Ordered By: Julio Sanchez on 09-05-2022 Cholesterol in VLDL [Mass/Vol] 14 mg/dL 5-40 [facility] Serum or plasma creatinine m easurement (mass/volume)Ordered By: Julio Sanchez on 09-05-2022 Creatinine [Mass/Vol] 0.84 mg/dL 0.70-1.[address] [facility] Comment on above: The validity of the calculated GFR & GFRAA in patients over 70 years has not been determined. Clinical correlation is essential. Serum or plasma low density lipoprotein (LDL) cholesterol measurement (mass/volume)Ordered By: Julio Sanchez on 09-05-2022 Cholesterol in LDL [Mass/Vol] 126 mg/dL 0-130 [facility] Serum or plasma urea nitroge n measurement (mass/volume)Ordered By: Julio Sanchez on 09-05-2022 Urea nitrogen [Mass/Vol] 22 mg/dL 7-18 [facility] Thin prep Papanicolaou smear with manual screeningOrdered By: Julio Sanchez on 09-05-2022 Thin prep Papanicolaou smear with manual screening 25 U/L 15-37 [facility] Thin prep Papanicolaou smear with manual screening 4 5-15 [facility] Whole blood hemoglobin A1c/t otal hemoglobin ratio (mass fraction)Ordered By: Julio Sanchez on 09-05-2022 HbA1c (Bld) [Mass fraction] 5.2 % 3.8-5.6 [facility] Comment on above: Normal < 5.7 % Predi abetic 5.7 - 6.4 % Diabetic >or= 6.5 % Please note range changes. Basophil percentageon 2021 Bilirubin [Mass/Vol] 1.00 mg/dL 0.20-1.00 [facility] Work Phone: Comment on above: For patients on eltr ombopag therapy, use of Dimension Pala TBIL is not recommended. Chloride [Moles/Vol] 103 mmol/L 98-107 [facility] Work Phone: Cholesterol [Mass/Vol] 209 mg/dL <200 [facility] Work Phone: Comment on above: <200 mg/dL Desirable 200-240 mg/dL Borderline >240 mg/dL High Risk Glucose [Mass/Vol] 110 mg/dL 74-106 [facility] Work Phone: Comment on above: Fasting Glucose resu lt from 100 to 125 mg/dL suggests IMPAIRED HOMEOSTASIS per A.D.A. criteria. Potassium [Moles/Vol] 4.5 mmol/L 3.5-5.[address] [facility] Work Phone: Protein [Mass/Vol] 7.9 g/dL 6.4-8.2 [facility] Work Phone: Sodium [Moles/Vol] 137 mmol/L 136-145 [facility] Work Phone: Triglyceride [Mass/Vol] 65 mg/dL <199 [facility] Work Phone: Comment on above: The drugs N-Acetylcy steine and Metamizole may falsely depress this assay.Serum Triglycerides Reference Interval Normal <150 mg/dL Borderline high 150 - 199 mg/dL High 200 - 499 mg/dL Very High > or = 500 mg/dL Laboratory - Chemistry and C hemistry - challengeon 02-13-2022 ALP [Catalytic activity/Vol] 71 U/L 45-117 [facility] Work Phone: ALT [Catalytic activity/Vol] 30 U/L 16-61 [facility] Work Phone: CO2 [Moles/Vol] 29.0 mmol/L 21.0-32.0 [facility] Work Phone: Globulin (S) [Mass/Vol] 4.2 g/dL 2.2-4.2 [facility] Work Phone: Urea nitrogen/Creatinine [Mass ratio] 19.2 mg/mg 10- [facility] Work Phone: No Panel Informationon 02-13 Estimated GFR (MDRD) Amer 117 mL/min >60 [facility] Work Phone: Comment on above: GFR Calc Estimated GFR (MDRD) Non-Af Amer 97 mL/min >60 [facility] Work Phone: Comment on above: Non- GFR Calc Vitamin D 25-Hydroxy 46.6 ng/mL [facility] Work Phone: Comment on above: Vitamin D 25(OH) Sta tus Range Deficiency <20 ng/mL (50nmol/L) Insufficiency 20 - 30 ng/mL (50 - 75 nmol/L) Sufficiency 30 - 100 ng/mL (75 - 250 nmol/L) Toxicity >100 ng/mL (>250 nmol/L) Serum or plasma albumin maddie urement (mass/volume)on 02-13-2022 Albumin [Mass/Vol] 3.7 g/dL 3.2-5.0 [facility] Work Phone: Serum or plasma albumin/glob ulin mass ratioon 02-13-2022 Albumin/Globulin [Mass ratio] 0.9 {ratio} 0.9-2.4 [facility] Work Phone: Serum or plasma calcium maddie urement (mass/volume)on 02-13-2022 Calcium [Mass/Vol] 9.4 mg/dL 8.5-10.1 [facility] Work Phone: Serum or plasma cholesterol in HDL measurement (mass/volume)on 02-13-2022 Cholesterol in HDL [Mass/Vol] 55 mg/dL >40 [facility] Work Phone: Comment on above: The drugs N-Acetylcy steine and Metamizole may falsely depress this assay. Reference Range HDL <40 mg/dL Low HDL Cholesterol HDL >or= 60 mg/dL High HDL Cholesterol Serum or plasma cholesterol in VLDL measurement (mass/volume)on 02-13-2022 Cholesterol in VLDL [Mass/Vol] 13 mg/dL 5-40 [facility] Work Phone: Serum or plasma creatinine m easurement (mass/volume)on 02-13-2022 Creatinine [Mass/Vol] 0.83 mg/dL 0.70-1.[address] [facility] Work Phone: Comment on above: The validity of the calculated GFR & GFRAA in patients over 70 years has not been determined. Clinical correlation is essential. Serum or plasma low density lipoprotein (LDL) cholesterol measurement (mass/volume)on 02-13-2022 Cholesterol in LDL [Mass/Vol] 141 mg/dL 0-130 [facility] Work Phone: Serum or plasma urea nitroge n measurement (mass/volume)on 02-13-2022 Urea nitrogen [Mass/Vol] 16 mg/dL 7-18 [facility] Work Phone: Thin prep Papanicolaou smear with manual screeningon 02-13-2022 Thin prep Papanicolaou smear with manual screening 25 U/L 15-37 [facility] Work Phone: Thin prep Papanicolaou smear with manual screening 5 5-15 [facility] Work Phone: Absolute lymphocyte counton 08-19-2021 Lymphocytes Auto (Unsp spec) [#/Vol] 1.01 10*3/uL 0.83-4.51 [facility] Work Phone: Basophil percentageon 2021 Basophils/100 WBC (Bld) 0.2 % 0-1 [facility] Work Phone: Bilirubin [Mass/Vol] 0.70 mg/dL 0.20-1.00 [facility] Work Phone: Comment on above: For patients on eltr ombopag therapy, use of Dimension Pala TBIL is not recommended. Chloride [Moles/Vol] 107 mmol/L 98-107 [facility] Work Phone: Cholesterol [Mass/Vol] 208 mg/dL <200 [facility] Work Phone: Comment on above: <200 mg/dL Desirable 200-240 mg/dL Borderline >240 mg/dL High Risk Eosinophils/100 WBC (Bld) 2.1 % 0-5 [facility] Work Phone: Glucose [Mass/Vol] 104 mg/dL 74-106 [facility] Work Phone: Comment on above: Fasting Glucose resu lt from 100 to 125 mg/dL suggests IMPAIRED HOMEOSTASIS per A.D.A. criteria. Neutrophils (Bld) [#/Vol] 3.1 10*3/uL 2.0-7.7 [facility] Work Phone: Neutrophils/100 WBC (Bld) 66.6 % 47-70 [facility] Work Phone: Potassium [Moles/Vol] 4.3 mmol/L 3.5-5.[address] [facility] Work Phone: Protein [Mass/Vol] 8.0 g/dL 6.4-8.2 [facility] Work Phone: Sodium [Moles/Vol] 138 mmol/L 136-145 [facility] Work Phone: Triglyceride [Mass/Vol] 51 mg/dL [facility] Work Phone: Comment on above: The drugs N-Acetylcy steine and Metamizole may falsely depress this assay.Serum Triglycerides Reference Interval Normal <150 mg/dL Borderline high 150 - 199 mg/dL High 200 - 499 mg/dL Very High > or = 500 mg/dL WBC (Bld) [#/Vol] 4.7 10*3/uL 4.4-11.0 [facility] Work Phone: Blood erythrocytes count (nu mber/volume)on 08-19-2021 RBC (Bld) [#/Vol] 5.38 10*6/uL 4.6-6.2 [facility] Work Phone: Blood hemoglobin measurement (mass/volume)on 08-19-2021 Hemoglobin (Bld) [Mass/Vol] 16.4 g/dL 13.0-16.5 [facility] Work Phone: Blood lymphocytes/100 leukoc yteson 08-19-2021 Lymphocytes/100 WBC (Bld) 21.5 % 19-41 [facility] Work Phone: Blood monocytes/100 leukocyt eson 08-19-2021 Monocytes/100 WBC (Bld) 9.4 % 0-10 [facility] Work Phone: Blood platelet mean volumeon 08-19-2021 Platelet mean volume (Bld) [Entitic vol] 9.5 fL 6.2-12.0 [facility] Work Phone: Determination of erythrocyte mean corpuscular volume (MCV)on 08-19-2021 MCV (RBC) [Entitic vol] 89.2 fL 80-94 [facility] Work Phone: Hematocrit Auto (Bld) [Volum e fraction]on 08-19-2021 Hematocrit (Bld) [Volume fraction] 48.0 % 40-54 [facility] Work Phone: [phone] Laboratory - Chemistry and C hemistry - challengeon 08-19-2021 ALP [Catalytic activity/Vol] 68 U/L 45-117 [facility] Work Phone: ALT [Catalytic activity/Vol] 26 U/L 16-61 [facility] Work Phone: CO2 [Moles/Vol] 26.0 mmol/L 21.0-32.0 [facility] Work Phone: Globulin (S) [Mass/Vol] 4.4 g/dL 2.2-4.2 [facility] Work Phone: Urea nitrogen/Creatinine [Mass ratio] 17.8 mg/mg 10-20 [facility] Work Phone: Laboratory - Hematology and Cell countson 08-19-2021 Erythrocyte distribution width (RBC) [Entitic vol] 40.3 fL 35.1-43.9 [facility] Work Phone: Erythrocyte distribution width (RBC) [Ratio] 12.2 % 11.6-14.6 [facility] Work Phone: Immature granulocytes/100 WBC (Bld) 0.200 % 0.0-0.9 [facility] Work Phone: Comment on above: IG% - Immature Granu locytes (promyelocytes, myelocytes and metamyelocytes) > 1% indicates that a LEFT SHIFT is Present. MCH (RBC) [Entitic mass] 30.5 pg 27.0-32.0 [facility] Work Phone: Nucleated RBC/100 WBC (Bld) [Ratio] 0 % 0-5 [facility] Work Phone: MCHC Auto (RBC) [Mass/Vol]on 08-19-2021 MCHC (RBC) [Mass/Vol] 34.2 g/dL 32-[address] [facility] Work Phone: No Panel Informationon 08-19 Estimated GFR (MDRD) Amer 116 mL/min >60 [facility] Work Phone: Comment on above: GFR Calc Estimated GFR (MDRD) Non-Af Amer 96 mL/min >60 [facility] Work Phone: Comment on above: Non- GFR Calc Prostate Specific Antigen Screen 1.41 ng/mL 0.00-4.00 [facility] Work Phone: Comment on above: This test was perfor med using the TPSA assay method for the[facility]. Values obtained with differentassay methods cannot be used interchangably.When changing PSA assays in the course of monitoring apatient, additional sequential testing should be carriedout to confirm baseline values. Vitamin D 25-Hydroxy 38.1 ng/mL [facility] Work Phone: Comment on above: Vitamin D 25(OH) Sta tus Range Deficiency <20 ng/mL (50nmol/L) Insufficiency 20 - 30 ng/mL (50 - 75 nmol/L) Sufficiency 30 - 100 ng/mL (75 - 250 nmol/L) Toxicity >100 ng/mL (>250 nmol/L) Platelets bldon 08-19-2021 Platelets (Bld) [#/Vol] 207 10*3/uL 150-450 [facility] Work Phone: Serum or plasma albumin maddie urement (mass/volume)on 08-19-2021 Albumin [Mass/Vol] 3.6 g/dL 3.2-5.0 [facility] Work Phone: Serum or plasma albumin/glob ulin mass ratioon 08-19-2021 Albumin/Globulin [Mass ratio] 0.8 {ratio} 0.9-2.4 [facility] Work Phone: Serum or plasma calcium maddie urement (mass/volume)on 08-19-2021 Calcium [Mass/Vol] 9.0 mg/dL 8.5-10.1 [facility] Work Phone: Serum or plasma cholesterol in HDL measurement (mass/volume)on 08-19-2021 Cholesterol in HDL [Mass/Vol] 53 mg/dL [facility] Work Phone: Comment on above: The drugs N-Acetylcy steine and Metamizole may falsely depress this assay. Reference Range HDL <40 mg/dL Low HDL Cholesterol HDL >or= 60 mg/dL High HDL Cholesterol Serum or plasma cholesterol in VLDL measurement (mass/volume)on 08-19-2021 Cholesterol in VLDL [Mass/Vol] 10 mg/dL 5-40 [facility] Work Phone: Serum or plasma creatinine m easurement (mass/volume)on 08-19-2021 Creatinine [Mass/Vol] 0.84 mg/dL 0.70-1.[address] [facility] Work Phone: Comment on above: The validity of the calculated GFR & GFRAA in patients over 70 years has not been determined. Clinical correlation is essential. Serum or plasma low density lipoprotein (LDL) cholesterol measurement (mass/volume)on 08-19-2021 Cholesterol in LDL [Mass/Vol] 145 mg/dL 0-130 [facility] Work Phone: Serum or plasma urea nitroge n measurement (mass/volume)on 08-19-2021 Urea nitrogen [Mass/Vol] 15 mg/dL 7-18 [facility] Work Phone: Thin prep Papanicolaou smear with manual screeningon 08-19-2021 Thin prep Papanicolaou smear with manual screening 23 U/L 15-37 [facility] Work Phone: Thin prep Papanicolaou smear with manual screening 5 5-15 [facility] Work Phone: Whole blood hemoglobin A1c/t otal hemoglobin ratio (mass fraction)on 08-19-2021 HbA1c (Bld) [Mass fraction] 5.1 % 3.8-5.6 [facility] Work Phone: Comment on above: Normal < 5.7 % Predi abetic 5.7 - 6.4 % Diabetic >or= 6.5 % Please note range changes. Vital Signs Date Time Vital Sign Value Performing Clinician Faci lity 03-28-2022 09:44-0500 Body temperature 98.4 [degF] Dr. Julio Sanchez Work Phone: [facility] Work Phone: 03-28-2022 09:44-0500 Diastolic blood pressure 86 mm[Hg] Dr. Julio Sanchez Work Phone: [facility] Work Phone: 03-28-2022 09:44-0500 Heart rate 82 /min Dr. Julio Sanchez Work Phone: [facility] Work Phone: 03-28-2022 09:44-0500 Respiratory rate 80 /min Dr. Julio Sanchez Work Phone: [facility] Work Phone: 03-28-2022 09:44-0500 SaO2% (BldA) [Mass fraction] 96 % Dr. Julio Sanchez Work Phone: [facility] Work Phone: 03-28-2022 09:44-0500 Systolic blood pressure 125 mm[Hg] Dr. Julio Sanchez Work Phone: [facility] Work Phone: 03-28-2022 08:32-0500 Body height 180.[address] Julio Sanchez Work Phone: [facility] Work Phone: 03-28-2022 08:32-0500 Body mass index (BMI) [Ratio] 24.8 kg/m2 Dr. Julio Sanchez Work Phone: [facility] Work Phone: 03-28-2022 08:32-0500 Body weight 80.[address] Julio Sanchez Work Phone: [facility] Work Phone: 03-01-2022 14:53-0500 Body mass index (BMI) [Ratio] 24.5 kg/m2 Dr. Julio Sanchez Work Phone: [facility] Work Phone: 03-01-2022 14:53-0500 Body temperature 97.6 [degF] Dr. Julio Sanchez Work Phone: [facility] Work Phone: 03-01-2022 14:53-0500 Body weight 79.[address] Julio Sanchez Work Phone: [facility] Work Phone: 03-01-2022 14:53-0500 Diastolic blood pressure 90 mm[Hg] Dr. Julio Sanchez Work Phone: [facility] Work Phone: 03-01-2022 14:53-0500 Heart rate 68 /min Dr. Julio Sanchez Work Phone: [facility] Work Phone: 03-01-2022 14:53-0500 Respiratory rate 17 /min Dr. Julio Sanchez Work Phone: [facility] Work Phone: 03-01-2022 14:53-0500 SaO2% (BldA) [Mass fraction] 98 % Dr. Julio Sanchez Work Phone: [facility] Work Phone: 03-01-2022 14:53-0500 Systolic blood pressure 153 mm[Hg] Dr. Julio Sanchez Work Phone: [facility] Work Phone: Encounters Encounter Date Encounter Type Care Provider Facility Start: 09-17-2024 End: 09-17-[address] Melquiades Lee MD Work Phone: [facility] Work Phone: Start: 09-17-2024 End: 09-17-[address] Melquiades Lee MD -Laboratory Work Phone: Start: 09-17-2024 End: 09-17-2024 ambulatory Melquiades Chi Jesus Facility:[facility] Start: 04-21-2024 End: 04-21-2024 ambulatory Melquiades Chi Jesus Facility:[facility] Start: 03-19-2024 End: 03-19-2024 ambulatory Melquiades Chi Jesus Facility:[facility] Start: 09-05-2022 End: 09-05-2022 ambulatory [facility] Work Phone: Start: 09-05-2022 End: 09-05-2022 Patient encounter procedure [facility] Start: 03-28-2022 Non-patient / Non-visit Dr. Reina Sanchez Work Phone: [facility] Start: 03-28-2022 End: 03-28-2022 Admission to same day surgery center Dr. Julio Sanchez Work Phone: [facility]-Endoscopy Start: 03-28-2022 End: 03-28-[address] Julio Sanchez Work Phone: [facility] Work Phone: Start: 03-01-2022 End: 03-01-[address] Julio Sanchez Work Phone: [facility] Start: 02-13-2022 End: 02-13-2022 ambulatory [facility] Work Phone: Start: 02-13-2022 End: 02-13-2022 [facility] Start: 09-02-2021 End: 09-02-2021 [facility] Start: 08-19-2021 End: 08-19-2021 [facility] Procedures Date Procedure Procedure Detail Performing Clinician Start: 09-17-2024 Vitamin D, 25-hydroxy measurement Dr. Laz Lee MD Work Phone: Comment on above: Vitamin D StatusDeficiency: <20 ng/mL (5 0nmol/L)Insufficiency: 20-30 ng/mL (50-75 nmol/L)Sufficiency: 30-100 ng/mL (75-250 nmol/L)Toxicity: >100 ng/mL (>250 nmol/L) Start: 03-28-[address] Julio rea Work Phone: Start: 09-02-2021 Radiologic examination of knee H/O: surgery History of detac hed retina repair History of appendectomy Hx of appendectom y History of repair of inguinal hernia Hx of bilateral inguinal hernia repair Comment on above: Plan of Treatment Date Care Activity Detail Author Start: 09-17-2024 Borrelia burgdorferi blot test [facility] Start: 03-28-2022 Patient discharge [facility] Work Phone: Laboratory data interpretation [facility] Patient referral [facility] Work Phone: [facility] Payers Date Payer Category Payer Medicare [id number] 2024 Self-pay [id number] 2024 Unknown [id number] Unknown [id number] Unknown [id number] Unknown [id number] Unknown [id number] Social History Date Type Detail Facility Start: 06-24-2020 End: 03-27-2022 Tobacco smoking status NHIS Unknown if ever smoked [facility] Start: 1950 Sex Assigned At Male [facility] Start: 03-27-2022 Tobacco smoking stat us NHIS Never smoked tobacco (finding) [facility] Goals Date Patient Goal Desired Activity /State Mental Status Date Assessment Result Facility 03-28-2022 Cognitive function Voice/Name [facility] Work Phone: Evaluation note Note Date & Type Note Facility Evaluation note No assessment information availa ble [facility] Work Phone: Evaluation note Note Date & Type Note Facility Evaluation note Diagnosis Onset Date History of James's esophagus acute [facility] Work Phone: Reason for referral (narrative) Note Date & Type Note Facility Reason for referral (narrative) No reason for referral information available [facility] Work Phone: Chief Complaint and Reason for Visit Chief Complaint KNEE PAIN- BOTH Chief Complaint Esophagogastroduoden oscopy Reason for Visit History of James's esophagus Family History No Family History Records Found Relationship Condition Age at Onset Recorded Date/T jacquelin mother Malignant neoplasm of breast Unknown Cardiac disease Unknown Cerebrovascular accident (CVA) Unknown Disorder of thyroid Unknown Arthritis Unknown grandmother Diabetes mellitus Unknown father Malignant neoplasm of esophagus Unknown Malignant neoplasm Unknown Hypertension Unknown Advance Directives No Advanced Directives Records Found Advance Directive Response Recorded Date/ Time Living Will No March 27, 2 022 2:55pm Power of Lead Esthetician No March 27, 2022 2:55pm Advance Directive Response Recorded Date/ Time Living Will No March 27 022 3:55pm Power of Lead Esthetician No March 27, 2022 3:55pm Summary Purpose Additional Source Comments Goals (unrecognized section and content) Goals may be documented in a n alternate sectionGoals may be documented in an alternate sectionGoals may be documented in an alternate section Care Teams (unrecognized sec tion and content) Team Status: Active Member Role Status Dates Dr. Rolf Saldivar MD Family Provider Active Dr. Julio Sanchez MD Primary Care Provider Active Team Status: Inactive Member Role Status Dates Dr. Julio Sanchez MD Primary Care Provider, Attend ing Provider Active Team Status: Active Member Role Status Dates Dr. Rolf Saldivar MD Family Provider Active Dr. Melquiades Lee MD Primary Care Provider Active Team Status: Inactive Member Role Status Dates Dr. Melquiades Lee MD Primary Care Provider Active Start: September 17, 2024 End: September 17, 2024 Dr. Melquiades Lee MD Attending Provider Active Start: September 17, 2024 End: September 17, 2024 Dr. Melquiades Lee MD Referring Provider Active Start: September 17, 2024 End: September 17, 2024 (unrecognized sect ion and content) No Status Records Found INFORMATION SOURCE (unrecogn ized section and content) DATE CREATED AUTHOR 09/24/2024 [facility] FOR RECORDS PERTAINING TO PATIENTS WHO ARE OR HAVE BEEN ENROLLED IN A CHEMICAL DEPENDENCY/SUBSTANCEABUSE PROGRAM, SOME INFORMATION MAY BE OMITTED. This clinical summary was aggregated from multiple sources. Caution should be exercised in using it in the provision of clinical care. This summary normalizes information from multiple sources, and as a consequence, information in this document may materially change the coding, format and clinical context of patient data. In addition, data may be omitted in some cases. CLINICAL DECISIONS SHOULD BE BASED ON THE PRIMARY CLINICAL RECORDS. [employer] provides no warranty or guarantee of the accuracy or completeness of information in this document.
== END | disposition home or self-care (01) ==
LOC: LAB 03-24 07:38
PROVIDERS: PCP Family Medicine Geriatric Medicine; Referring Provider Family Medicine Geriatric Medicine; Visit Provider Family Medicine Geriatric Medicine
DX: E55.9 Vitamin D deficiency, unspecified (principal); E78.5 Hyperlipidemia, unspecified; R53.83 Other fatigue
CPT/HCPCS: 36415; 80053; 82306; 84443; 85025